=== PATIENT | female | born 1995 | race Caucasian/White ===

== ENCOUNTER 2023-01-20 21:51 | Outpatient (REF) | payer OTHER, SELFPAY ==
[2023-01-25 14:08] LABS: Age Gdln ACOG Testing Note (.); IGP, rfx Aptima HPV ASCU Note (.)
== END 2023-01-20 21:52 | disposition home or self-care (01) ==
LOC: LAB 21:51
PROVIDERS: PCP Family Medicine; Visit Provider Obstetrics & Gynecology
DX: Z01.419 Encounter for gynecological examination (general) (routine) without abnormal findings (principal)
CPT/HCPCS: G0145

== ENCOUNTER 2023-01-22 13:46 | Outpatient (OUT) | payer OTHER, SELFPAY ==
--- NOTE | 2023-01-22 13:52 | US_ITS ---
The [address] [address] Patient Name: UZIEL MELGOZA MRN: [id number] date: 1995 Sex: F Assigned Patient Location: US Current Patient Location: Accession/Order Number: [id number] Exam Date: 01/22/2023 13:55 Report Date: 01/23/2023 08:27 At the request of: LINDA GOLDBERG Procedure: US pelvis w/ transvaginal EXAM: US pelvis w/ transvaginal HISTORY: Pelvic Pain COMPARISON: 08/26/2019. TECHNIQUE: Pelvic sonography was performed utilizing grayscale and color Doppler technique. FINDINGS: Retroverted uterus measures 7.4 x 4.4 x 5.1 cm. Uterine endometrial stripe measures 0.3 cm in thickness. Intrauterine device is positioned within the lower uterine segment. Right ovary measures 2.6 x 2.1 x 1.6 cm. Normal right ovarian parenchyma. Left ovary measures 2.9 x 2.3 x 2.1 cm. Left ovarian cyst, 2.3 cm with heterogeneous hypoechoic/lacelike internal echoes and no internal color flow. No significant free fluid within the pelvis. US/US pelvis w/ transvaginal IMPRESSION: 1. Low-lying intrauterine device. 2. Probable left ovarian hemorrhagic cyst. Consider follow-up ultrasound in 6-8 weeks to ensure resolution. Electronically authenticated by: MANN PINO Date: 01/23/2023 08:27
== END 2023-01-22 13:47 | disposition home or self-care (01) ==
LOC: US 13:46
PROVIDERS: PCP Family Medicine; Visit Provider Obstetrics & Gynecology
DX: R10.2 Pelvic and perineal pain (principal); N83.202 Unspecified ovarian cyst, left side
CPT/HCPCS: 76830; 76856

== ENCOUNTER 2023-11-01 13:00 | Outpatient (OUT) | payer MEDICAID, OTHER, SELFPAY ==
--- NOTE | 2023-11-01 13:03 | US_ITS ---
[address] [address] Patient Name: UZIEL MELGOZA MRN: [id number] date: 1995 Sex: F Assigned Patient Location: [facility] Current Patient Location: Accession/Order Number: [id number] Exam Date: 11/01/2023 13:04 Report Date: 11/02/2023 06:41 At the request of: LINDA GOLDBERG Procedure: US pelvis w/ transvaginal EXAMINATION: US pelvis w/ transvaginal HISTORY: PELVIC PAIN ; right lower quadrant pain COMPARISON: Ultrasound pelvis 01/22/2023 TECHNIQUE: Transabdominal and/or transvaginal sonographic examination was performed as indicated by examination type. FINDINGS: UTERUS: Normal size and appearance. Uterus size: 7.9 x 3.9 x 5.5 cm ENDOMETRIUM: Normal homogeneous appearance. Endometrial thickness: 4 mm RIGHT OVARY: Contains a 1.8 cm slightly irregular cysts/collapsing follicle. Duplex Doppler demonstrates normal waveform and flow; resistive index 0.5. Ovary size: 3.3 x 2.5 x 2.2 cm LEFT OVARY: Normal size and appearance. Duplex Doppler demonstrates normal waveform and flow; resistive index 0.6. Ovary size: 2.2 x 1.6 x 2.5 cm CUL-DE-SAC: Unremarkable. No significant free fluid. BLADDER: Unremarkable. OTHER: None. US/US pelvis w/ transvaginal IMPRESSION: 1. Right ovary contains an irregular 1.8 cm cyst; likely collapsing cyst/follicle. Electronically authenticated by: LAYA CRUZ Date: 11/02/2023 06:41
--- OUTSIDE RECORDS SUMMARY | 2023-11-01 13:24 | XMS_ITS | CCD ---
Author Organization [facility] Care Team Providers Care Cardiovascular Technician Name Role Phone ASHLYN ., DR MCKEON Admitting Unavailable ASHLYN ., DR MCKEON Attending Unavailable HOY ., DR PERDUE Primary Care Unavailable RHETT CABRERA Admitting Unavailable RHETT CABRERA Attending Unavailable HOY ., DR PERDUE Primary Care Unavailable RHETT CABRERA Consulting Unavailable ASHLYN ., DR MCKEON Admitting Unavailable ASHLYN ., DR MCKEON Attending Unavailable HOY ., DR PERDUE Primary Care Unavailable ASHLYN ., DR MCKEON Consulting Unavailable KARASIK ., DR PALACIOS Admitting Unavailabl e KARASIK ., DR PALACIOS Attending Unavailabl e HOY ., DR PERDUE Primary Care Unavailable KARASIK ., DR PALACIOS Consulting Unavailabl e KARASIK ., DR PALACIOS Procedure Practitioner Maxine vailable MARIAM ., DR PERDUE Primary Care Unavailable VERONICA, DR RAFA Licea Admitting Unavailable VERONICA, DR RAFA Licea Attending Unavailable TANO ., NIK MCKEON Consulting Unavailabl e MANN PINO Consulting Unavailable ASHLYN ., DR MCKEON Admitting Unavailable ASHLYN ., DR MCKEON Attending Unavailable HOY ., DR PERDUE Primary Care Unavailable ASHLYNLINDA Attending Unavailable Problems Active Problems Problem Classification Problem Date Documented Da te Episodic/Chronic Otitis media and related conditions (4 sources) Otitis media, unspecified, right ear; Translations: [OTITIS MEDIA UNSPECIFIED RIGHT EAR] Onset: 05-22-2022 Episodic Unclassified (1 source) CONTACT W/AND (SUSP) EXPOS COVID-19; Translations: [CONTACT W/AND (SUSP) EXPOS COVID-19] Onset: 05-27-2022 Past or Other Problems Problem Classification Problem Date Documented Date Episodic/Chronic Fever of unknown origin (4 sources) Fever, unspecified; Translations: [FEVER UNSPECIFIED] Onset: 06-17-2021 Episodic Immunizations and screening for infectious disease (1 source) Encounter for screening for human papillomavirus (HPV); Translations: [ENC SCREENING HUMAN PAPILLOMAVIRUS] Onset: 09-18-2021 Episodic Influenza (1 source) Influenza due to other identified influenza virus with other respiratory manifestations; Translations: [FLU D/T OTH ID FLU VIR OTH RSP MANF] Onset: 06-19-2021 Episodic OB-related trauma to perineum and vulva (1 source) Second degree perineal laceration during delivery; Translations: [SECOND DEG PERINEAL LAC DUR DELIV] Onset: 07-01-2021 Episodic Other complications of (3 sources) Maternal care for excessive growth, third trimester, not applicable or unspecified; Translations: [MAT CARE EXCSS FTL GRTH 3RD TRI UNS] Onset: 06-02-2021 Episodic Other and delivery including normal (9 sources) Encounter for care and examination of lactating mother; Translations: [Encounter for routine follow-up] Onset: 06-09-2021 Episodic Other screening for suspected conditions (not mental disorders or infectious disease) (4 sources) Encounter for screening for malignant neoplasm of cervix; Translations: [ENC SCREENING MALIG NEOPLASM CERV] Onset: 09-17-2021 Episodic Residual codes; unclassified (1 source) 39 weeks gestation of ; Translations: [39 WEEKS GESTATION OF ] Onset: 07-01-2021 Episodic Urinary tract infections (1 source) Urinary tract infection, site not specified; Translations: [UTI SITE NOT SPECIFIED] Onset: 06-19-2021 Episodic Results Test Name Value Interpretation Reference Range Facil ity Covid-19 PCR (CVDTB)on 05-06 SARS-CoV-2 (COVID-19) RNA ODILIA+probe Ql (Unsp spec) Not detected Normal NOT DETECTED [facility] Comment on above: Result Comment: When diagnostic testing is negative, the possibility of a false negative should be considered in the context of a patient's recent exposures and the presence of clinical signs and symptoms consistent with SARS-CoV-2. This test is not yet approved or cleared by the [place] FDA. When there are no FDA-approved or cleared tests available, and other criteria are met, FDA can make tests available under an emergency access mechanism called an Emergency Use Authorization (EUA). The EUA for this test is supported by the [place] of Health and Human Service's declaration that circumstances exist to justify the emergency use of in vitro diagnostics for the detection and/or diagnosis of the virus that causes COVID-19. This EUA will remain in effect for the duration of the COVID-19 declaration justifying emergency of IVDs, unless it is terminated or revoked by the FDA (after which the test may no longer be used). Performed By: #### C VDTBH #### [facility] [address] [place] [address] Dr. Alisha Vargas INFLUENZA A AND B AGon 05-[address] [facility] Normal [facility] Comment on above: Result Comment: Nega tive for Flu A protein angiten. Infection due to Flu A cannot be ruled out. Flu A angiten in the sample may be below the detection limit of the test. Performed By: #### C VDTBH #### [facility] [address] [place] [address] Dr. [facility] Normal [facility] Comment on above: Result Comment: Nega tive for Flu B protein antigen. Infection due to Flu B cannot be ruled out. Flu B antigen in the sample may be below the detection limit of the test. Performed By: #### C VDTBH #### [facility] [address] [place] [address] Dr. Alisha Vargas INFLUENZA A AG Negative Normal NEGATIVE SEE COMMENT [facility] Comment on above: Performed By: #### C VDTBH #### [facility] [address] [place] [address] Dr. Alisha Vargas INFLUENZA B AG Negative Normal NEGATIVE SEE COMMENT [facility] Comment on above: Performed By: #### C VDTBH #### [facility] [address] [place] [address] Dr. Alisha Vargas PAP ACOG PANEL 2: 21 to 29on 2021 . . Normal [facility] Comment on above: Performed By: #### C VDTBH #### [facility] [address] [place] [address] Dr. Alisha Vargas Age Gdln ACOG Testing 21-29 Normal [facility] Comment on above: Performed By: #### C VDTBH #### [facility] [address] [place] [address] Dr. Alisha Vargas DIAGNOSIS: Comment [facility] Comment on above: Result Comment: NEGA TIVE FOR INTRAEPITHELIAL LESION OR MALIGNANCY. Performed By: #### C VDTBH #### [facility] [address] [place] [address] Dr. Alisha Vargas Methodology: Comment Normal [facility] Comment on above: Result Comment: This liquid based ThinPrep(R) pap test was screened with the use of an image guided system. Performed By: #### C VDTBH #### [facility] [address] [place] [address] Dr. Alisha Vargas Note: Comment Normal [facility] Comment on above: Result Comment: The Pap smear is a screening test designed to aid in the detection of premalignant and malignant conditions of the uterine cervix. It is not a diagnostic procedure and should not be used as the sole means of detecting cervical cancer. Both false-positive and false-negative reports do occur. . Performed By: #### C VDTBH #### [facility] [address] [place] [address] Dr. Alisha Vargas Performed by: Comment Normal [facility] Comment on above: Result Comment: Rolando Gonzales, Residential Gas Heat Technician (ASCP) Performed By: #### C VDTBH #### [facility] [address] [place] [address] Dr. Alisha Vargas Reflex Criteria: Comment Normal [facility] Comment on above: Result Comment: The HPV DNA reflex criteria were not met with this specimen result therefore, no HPV testing was performed. . Performed By: #### C VDTBH #### [facility] [address] [place] [address] Dr. Alisha Vargas Specimen adequacy: Comment Normal [facility] Comment on above: Result Comment: Sati sfactory for evaluation. Endocervical and/or squamous metaplastic cells (endocervical component) are present. Performed By: #### C VDTBH #### [facility] [address] [place] [address] Dr. Alisha Vargas CBC AUTO DIFFon 06-17-2021 BASO # 0.0 103/ul Normal 0.0-0.1 [facility] Comment on above: Performed By: #### C BC #### [facility] [address] [place] [address] Dr. Alisha Vargas Basophils/100 WBC (Bld) 0.3 % Normal 0.2-2.0 [facility] Comment on above: Performed By: #### C BC #### [facility] [address] [place] [address] Dr. Alisha Vargas EO # 0.0 103/ul Normal 0.0-0.7 [facility] Comment on above: Performed By: #### C BC #### [facility] [address] [place] [address] Dr. Alisha Vargas Eosinophils/100 WBC (Bld) 0.3 % Critically low 0.9-7.0 [facility] Comment on above: Performed By: #### C BC #### [facility] [address] [place] [address] Dr. Alisha Vargas Erythrocyte distribution width (RBC) [Ratio] 13.8 % Normal 11.0-15.0 [facility] Comment on above: Performed By: #### C BC #### [facility] [address] [place] [address] Dr. Alisha Vargas Hematocrit (Bld) [Volume fraction] 39.1 % Normal 36.0-48.0 [facility] Comment on above: Performed By: #### C BC #### [facility] [address] [place] [address] Dr. Alisha Vargas Hemoglobin (Bld) [Mass/Vol] 12.8 g/dL Normal 12.0-16.0 [facility] Comment on above: Performed By: #### C BC #### [facility] [address] [place] [address] Dr. Alisha Vargas IG # 0.02 10e3/ul Normal 0.00-0.03 [facility] Comment on above: Performed By: #### C BC #### [facility] [address] [place] [address] Dr. Alisha Vargas IG % 0.3 % Normal 0.0-0.5 [facility] Comment on above: Performed By: #### C BC #### [facility] [address] [place] [address] Dr. Alisha Vargas LYMPH # 0.7 103/ul Critically low 1.2-3.8 [facility] Comment on above: Performed By: #### C BC #### [facility] [address] [place] [address] Dr. Alisha Vargas Lymphocytes/100 WBC (Bld) 11.3 % Critically low 20.5-60.0 [facility] Comment on above: Performed By: #### C BC #### [facility] [address] [place] [address] Dr. Alisha Vargas MANUAL DIFF REQ NO Normal [facility] Comment on above: Performed By: #### C BC #### [facility] [address] [place] [address] Dr. Alisha Vargas MCH (RBC) [Entitic mass] 27.1 pg Normal 26.7-34.0 [facility] Comment on above: Performed By: #### C BC #### [facility] [address] [place] [address] Dr. Alisha Vargas MCHC (RBC) [Mass/Vol] 32.7 g/dL Normal 29.9-35.2 [facility] Comment on above: Performed By: #### C BC #### [facility] [address] [place] [address] Dr. Alisha Vargas MCV (RBC) [Entitic vol] 82.8 fL Normal 81.0-99.0 [facility] Comment on above: Performed By: #### C BC #### [facility] [address] [place] [address] Dr. Alisha Vargas MONO # 0.7 103/ul Normal 0.3-0.8 [facility] Comment on above: Performed By: #### C BC #### [facility] [address] [place] [address] Dr. Alisha Vargas Monocytes/100 WBC (Bld) 11.6 % Normal 1.7-12.0 [facility] Comment on above: Performed By: #### C BC #### [facility] [address] [place] [address] Dr. Alisha Vargas NEUT # 4.7 103/ul Normal 1.4-6.5 [facility] Comment on above: Performed By: #### C BC #### [facility] [address] [place] [address] Dr. Alisha Vargas Neutrophils/100 WBC (Bld) 76.2 % Critically high 43.0-75.0 [facility] Comment on above: Performed By: #### C BC #### [facility] [address] [place] [address] Dr. Alisha Vargas Platelet mean volume (Bld) [Entitic vol] 10.2 fL Normal 9.5-13.5 [facility] Comment on above: Performed By: #### C BC #### [facility] [address] [place] [address] Dr. Alisha Vargas PLT 289 103/ul Normal 150-450 [facility] Comment on above: Performed By: #### C BC #### [facility] [address] [place] [address] Dr. Alisha Vargas RBC 4.72 106/ul Normal 4.20-5.40 [facility] Comment on above: Performed By: #### C BC #### [facility] [address] [place] [address] Dr. Alisha Vargas WBC 6.2 103/ul Normal 4.0-11.0 [facility] Comment on above: Performed By: #### C BC #### [facility] [address] [place] [address] Dr. Alisha Vargas [facility]03 SARS-CoV-2 (COVID-19) RNA ODILIA+probe Ql (Unsp spec) Not detected Normal NOT DETECTED [facility] Comment on above: Result Comment: When diagnostic testing is negative, the possibility of a false negative should be considered in the context of a patient's recent exposures and the presence of clinical signs and symptoms consistent with SARS-CoV-2. This test is not yet approved or cleared by the [place] FDA. When there are no FDA-approved or cleared tests available, and other criteria are met, FDA can make tests available under an emergency access mechanism called an Emergency Use Authorization (EUA). The EUA for this test is supported by the [place] of Health and Human Service's declaration that circumstances exist to justify the emergency use of in vitro diagnostics for the detection and/or diagnosis of the virus that causes COVID-19. This EUA will remain in effect for the duration of the COVID-19 declaration justifying emergency of IVDs, unless it is terminated or revoked by the FDA (after which the test may no longer be used). Performed By: #### C VDTBH #### [facility] [address] [place] [address] Dr. Alisha Vargas ER URINE PROFILEon 2 Bilirubin Ql (U) Negative Normal NEGATIVE [facility] Comment on above: Performed By: #### C VDTBH #### [facility] [address] [place] [address] Dr. Alisha Vargas Clarity (U) CLEAR Normal CLEAR [facility] Comment on above: Performed By: #### C VDTBH #### [facility] [address] [place] [address] Dr. Alisha Vargas Color (U) LT. YELLOW Normal YELLOW [facility] Comment on above: Performed By: #### C VDTBH #### [facility] [address] [place] [address] Dr. Alisha Vargas ERUAHD A micrscopic examination will be performed if indicated. Normal [facility] Comment on above: Performed By: #### C VDTBH #### [facility] [address] [place] [address] Dr. Alisha Vargas Glucose Ql (U) Negative Normal NEGATIVE [facility] Comment on above: Performed By: #### C VDTBH #### [facility] [address] [place] [address] Dr. Alisha Vargas Hemoglobin Ql (U) MODERATE Abnormal NEGATIVE [facility] Comment on above: Performed By: #### C VDTBH #### [facility] [address] [place] [address] Dr. Alisha Vargas Ketones Ql (U) Negative Normal NEGATIVE [facility] Comment on above: Performed By: #### C VDTBH #### [facility] [address] [place] [address] Dr. Alisha Vargas LEUKOCYTES SMALL Abnormal NEGATIVE [facility] Comment on above: Performed By: #### C VDTBH #### [facility] [address] [place] [address] Dr. Alisha Vargas Nitrite Ql (U) Negative Normal NEGATIVE [facility] Comment on above: Performed By: #### C VDTBH #### [facility] [address] [place] [address] Dr. Alisha Vargas pH (U) 5.5 [pH] Normal 5-9 [facility] Comment on above: Performed By: #### C VDTBH #### [facility] [address] [place] [address] Dr. Alisha Vargas SPEC GRAVITY 1.015 Normal 1.005-<=1.025 [facility] Comment on above: Performed By: #### C VDTBH #### [facility] [address] [place] [address] Dr. Alisha Vargas UA PROTEIN Negative Normal NEGATIVE/ TRACE [facility] Comment on above: Performed By: #### C VDTBH #### [facility] [address] [place] [address] Dr. Alisha Vargas UR MICRO IND INDICATED Normal [facility] Comment on above: Performed By: #### C VDTBH #### [facility] [address] [place] [address] Dr. Alisha Vargas Urobilinogen Qn (U) 0.2 {Jayda'U}/dL Normal 0.2 - 1.0 [facility] Comment on above: Performed By: #### C VDTBH #### [facility] [address] [place] [address] Dr. Alisha Vargas GROUP A STREP CULTUREon 06-03 S. pyogenes Ag Ql (Unsp spec) Culture Observations: NEGATIVE FOR GROUP A STREPTOCOCCUS. Normal [facility] Comment on above: Performed By: #### S SCRWILMA BowerTCX #### [facility] [address] [place] [address] Dr. Alisha Vargas INFLUENZA A AND B AGon 06-17 INFLUBNEGH SEE BELOW Normal [facility] Comment on above: Result Comment: Nega tive for Flu B protein antigen. Infection due to Flu B cannot be ruled out. Flu B antigen in the sample may be below the detection limit of the test. Performed By: #### I NFLUAB #### [facility] [address] [place] [address] Dr. Alisha Vargas INFLUENZA A AG Positive Abnormal NEGATIVE SEE COMMENT [facility] Comment on above: Performed By: #### I NFLUAB #### [facility] [address] [place] [address] Dr. Alisha Vargas INFLUENZA B AG Negative Normal NEGATIVE SEE COMMENT [facility] Comment on above: Performed By: #### I NFLUAB #### [facility] [address] [place] [address] Dr. Alisha Vargas INFLUPOS SEE BELOW Normal [facility] Comment on above: Result Comment: NOTE : Live attenuated influenzae vaccine viruses can cause a positive result for a rapid influenza diagnostic test if administered up to 7 days prior to rapid testing. Performed By: #### I NFLUAB #### [facility] [address] [place] [address] Dr. Alisha Vargas INTERNAL CONTROLS Within Normal Limits Normal Wi thin Normal Limits [facility] Comment on above: Performed By: #### I NFLUAB #### [facility] [address] [place] [address] Dr. Alisha Vargas LACTATE/LACTIC ACIDon 2021 Lactate [Moles/Vol] 1.5 mmol/L Normal 0.7-2.0 [facility] Comment on above: Performed By: #### L ACT #### [facility] [address] [place] [address] Dr. Alisha Vargas PROF 14(COMP METB)on 022 Albumin [Mass/Vol] 3.4 g/dL Critically low 3.5-5.0 Th e [facility] Comment on above: Performed By: #### C MP #### [facility] [address] [place] [address] Dr. Alisha Vargas Albumin/Globulin [Mass ratio] 0.8 {ratio} Normal [facility] Comment on above: Performed By: #### C MP #### [facility] [address] [place] [address] Dr. Alisha Vargas ALP [Catalytic activity/Vol] 103 U/L Normal 38-126 [facility] Comment on above: Performed By: #### C MP #### [facility] [address] [place] [address] Dr. Alisha Vargas ALT [Catalytic activity/Vol] 43 U/L Normal 9-52 [facility] Comment on above: Performed By: #### C MP #### [facility] [address] [place] [address] Dr. Alisha Vargas Anion gap [Moles/Vol] 15.1 mmol/L Normal [facility] Comment on above: Performed By: #### C MP #### [facility] [address] [place] [address] Dr. Alisha Vargas AST [Catalytic activity/Vol] 31 U/L Normal 14-36 [facility] Comment on above: Performed By: #### C MP #### [facility] [address] [place] [address] Dr. Alisha Vargas Bilirubin [Mass/Vol] 0.3 mg/dL Normal 0.2-1.3 [facility] Comment on above: Performed By: #### C MP #### [facility] [address] [place] [address] Dr. Alisha Vargas Calcium [Mass/Vol] 8.8 mg/dL Normal 8.4-10.2 [facility] Comment on above: Performed By: #### C MP #### [facility] [address] [place], [place] [id number] Dr. Alisha Vargas Chloride [Moles/Vol] 99 mmol/L Normal 98-107 [facility] Comment on above: Performed By: #### C MP #### [facility] [address] [place] [address] Dr. Alisha Vargas CO2 [Moles/Vol] 24.0 mmol/L Normal 22.0-30.0 [facility] Comment on above: Performed By: #### C MP #### [facility] [address] [place] [address] Dr. Alisha Vargas Creatinine [Mass/Vol] 0.83 mg/dL Normal 0.52-1.04 [facility] Comment on above: Performed By: #### C MP #### [facility] [address] [place] [address] Dr. Alisha Vargas EGFR-AF SWISS >60 Normal >=60 [facility] Comment on above: Performed By: #### C MP #### [facility] [address] [place] [address] Dr. Alisha Vargas EGFR-NON AF SWISS >60 Normal >=60 [facility] Comment on above: Performed By: #### C MP #### [facility] [address] [place] [address] Dr. Alisha Vargas Globulin (S) [Mass/Vol] 4.5 g/dL Normal [facility] Comment on above: Performed By: #### C MP #### [facility] [address] [place] [address] Dr. Alisha Vargas Glucose [Mass/Vol] 110 mg/dL Critically high 74-106 [facility] Comment on above: Performed By: #### C MP #### [facility] [address] [place] [address] Dr. Alisha Vargas Potassium [Moles/Vol] 4.1 mmol/L Normal 3.4-5.0 [facility] Comment on above: Performed By: #### C MP #### [facility] [address] [place] [address] Dr. Alisha Vargas Protein [Mass/Vol] 7.9 g/dL Normal 6.1-8.2 [facility] Comment on above: Performed By: #### C MP #### [facility] [address] [address] [address] Alisha Vargas Sodium [Moles/Vol] 134 mmol/L Critically low 137-145 [facility] Comment on above: Performed By: #### C MP #### [facility] [address] [place] [address] Dr. Alisha Vargas Urea nitrogen [Mass/Vol] 9.0 mg/dL Normal 7.0-17.0 [facility] Comment on above: Performed By: #### C MP #### [facility] [address] [place] [address] Dr. Alisha Vargas Urea nitrogen/Creatinin e [Mass ratio] 10.8 mg/mg Normal [facility] Comment on above: Performed By: #### C MP #### [facility] [address] [place] [address] Dr. Alisha Vargas STREPT SCREENon 06-17-2021 STREP SCREEN A Negative Normal NEGATIVE [facility] Comment on above: Performed By: #### S SCRN, GRASTCX #### [facility] [address] [place] [address] Dr. Alisha Vargas URINE MICROSCOPIC ONLYon BACTERIA TRACE Abnormal NONE SEEN [facility] Comment on above: Performed By: #### C VDTBH #### [facility] [address] [place] [address] Dr. Alisha Vargas Bacteria identified Cx Nom (U) NOT INDICATED Normal [facility] Comment on above: Performed By: #### C VDTBH #### [facility] [address] [place] [address] Dr. Alisha Vargas CAST NONE SEEN Normal NONE SEEN [facility] Comment on above: Performed By: #### C VDTBH #### [facility] [address] [place] [address] Dr. Alisha Vargas Crystals LM Nom (Urine sed) NONE SEEN Normal NONE SEEN [facility] Comment on above: Performed By: #### C VDTBH #### [facility] [address] [place] [address] Dr. Alisha Vargas Epithelial cells LM Ql (Urine sed) RARE Normal NONE SEEN /RARE [facility] Comment on above: Performed By: #### C VDTBH #### [facility] [address] [place] [address] Dr. Alisha Vargas MUCOUS NONE SEEN Normal NONE SEEN [facility] Comment on above: Performed By: #### C VDTBH #### [facility] [address] [place] [address] Dr. Alisha Vargas RBC 0-2 Normal 0-2 [facility] Comment on above: Performed By: #### C VDTBH #### [facility] [address] [place] [address] Dr. Alisha Vargas WBC 2-5 Abnormal NONE SEEN [facility] Comment on above: Performed By: #### C VDTBH #### [facility] [address] [place] [address] Dr. Alisha Vargas XR CHEST 1 Von 06-17-2021 XR CHEST 1 V EXAM: XR CHEST 1 V HISTORY: COUGH COMPARISON: 10/26/2018 TECHNIQUE: Single frontal view of the chest. FINDINGS: Tubes/lines/devices: None. Lungs: Hypoinflated. No evidence of pneumonia or pulmonary edema. Pleura: No pneumothorax. No pleural effusion. Heart and mediastinum: Prominent cardiac silhouette attributed to hypoventilatory and portable technique. Bones/soft tissues: No acute osseous findings. Unremarkable soft tissues. Abdomen: Unremarkable. IMPRESSION: No acute pulmonary process. Electronically authenticated by: MANN PINO Date: 2021-06-17 21:52 Normal [facility] CBC AUTO DIFFon 06-04-2021 BASO # 0.0 103/ul Normal 0.0-0.1 [facility] Comment on above: Performed By: #### C VDTBH #### [facility] [address] [place] [address] Dr. Alisha Vargas Basophils/100 WBC (Bld) 0.3 % Normal 0.2-2.0 [facility] Comment on above: Performed By: #### C VDTBH #### [facility] [address] [place] [address] Dr. Alisha Vargas EO # 0.2 103/ul Normal 0.0-0.7 [facility] Comment on above: Performed By: #### C VDTBH #### [facility] [address] [place] [address] Dr. Alisha Vargas Eosinophils/100 WBC (Bld) 1.5 % Normal 0.9-7.0 [facility] Comment on above: Performed By: #### C VDTBH #### [facility] [address] [place] [address] Dr. Alisha Vargas Erythrocyte distribution width (RBC) [Ratio] 14.3 % Normal 11.0-15.0 [facility] Comment on above: Performed By: #### C VDTBH #### [facility] [address] [place] [address] Dr. Alisha Vargas Hematocrit (Bld) [Volume fraction] 31.6 % Critically low 36.0-48.0 [facility] Comment on above: Performed By: #### C VDTBH #### [facility] [address] [place] [address] Dr. Alisha Vargas Hemoglobin (Bld) [Mass/Vol] 10.3 g/dL Critically low 12.0-16.0 [facility] Comment on above: Performed By: #### C VDTBH #### [facility] [address] [place] [address] Dr. Alisha Vargas IG # 0.03 10e3/ul Normal 0.00-0.03 [facility] Comment on above: Performed By: #### C VDTBH #### [facility] [address] [place] [address] Dr. Alisha Vargas IG % 0.3 % Normal 0.0-0.5 [facility] Comment on above: Performed By: #### C VDTBH #### [facility] [address] [place] [address] Dr. Alisha Vargas LYMPH # 3.3 103/ul Normal 1.2-3.8 [facility] Comment on above: Performed By: #### C VDTBH #### [facility] [address] [place] [address] Dr. Alisha Vargas Lymphocytes/100 WBC (Bld) 30.3 % Normal 20.5-60.0 [facility] Comment on above: Performed By: #### C VDTBH #### [facility] [address] [place] [address] Dr. Alisha Vargas MANUAL DIFF REQ NO Normal [facility] Comment on above: Performed By: #### C VDTBH #### [facility] [address] [place] [address] Dr. Alisha Vargas MCH (RBC) [Entitic mass] 27.4 pg Normal 26.7-34.0 [facility] Comment on above: Performed By: #### C VDTBH #### [facility] [address] [place] [address] Dr. Alisha Vargas MCHC (RBC) [Mass/Vol] 32.6 g/dL Normal 29.9-35.2 [facility] Comment on above: Performed By: #### C VDTBH #### [facility] [address] [place] [address] Dr. Alisha Vargas MCV (RBC) [Entitic vol] 84.0 fL Normal 81.0-99.0 [facility] Comment on above: Performed By: #### C VDTBH #### [facility] [address] [place] [address] Dr. Alisha Vargas MONO # 0.6 103/ul Normal 0.3-0.8 [facility] Comment on above: Performed By: #### C VDTBH #### [facility] [address] [place] [address] Dr. Alisha Vargas Monocytes/100 WBC (Bld) 5.3 % Normal 1.7-12.0 [facility] Comment on above: Performed By: #### C VDTBH #### [facility] [address] [place] [address] Dr. Alisha Vargas NEUT # 6.7 103/ul Critically high 1.4-6.5 [facility] Comment on above: Performed By: #### C VDTBH #### [facility] [address] [address] [address] Alisha Vargas Neutrophils/100 WBC (Bld) 62.3 % Normal 43.0-75.0 [facility] Comment on above: Performed By: #### C VDTBH #### [facility] [address] [address] [address] Alisha Vargas Platelet mean volume (Bld) [Entitic vol] 11.2 fL Normal 9.5-13.5 [facility] Comment on above: Performed By: #### C VDTBH #### [facility] [address] [address] [address] Alisha Vargas PLT 234 103/ul Normal 150-450 [facility] Comment on above: Performed By: #### C VDTBH #### [facility] [address] [place] [address] Dr. Alisha Vargas RBC 3.76 106/ul Critically low 4.20-5.40 [facility] Comment on above: Performed By: #### C VDTBH #### [facility] [address] [place] [address] Dr. Alisha Vargas WBC 10.8 103/ul Normal 4.0-11.0 [facility] Comment on above: Performed By: #### C VDTBH #### [facility] [address] [place] [address] Dr. Alisha Vargas ASYMPTOMATIC COVID-19 ANTIGE Non 06-02-2021 EUA Statement SEE BELOW Normal [facility] Comment on above: Result Comment: This test has not been FDA cleared or approved, but has been authorized by the FDA under an Emergency Use Authorization (EUA) for use by authorized laboratories certified under CLIA that meet the requirements to perform moderate or high complexity testing. This test has been authorized only for the detection of proteins from SARS-CoV-2, not for any other viruses or pathogens. The emergency use of this test is authorized for the duration of the declaration that circumstances exist justifying the authorization of emergency use of in vitro diagnostic tests for detection and/or diagnosis of Covid-19 under section 564(b)(1) of the Act, 21 U.S.C. 360bbb-3(b)(1), unless the declaration is terminated or authorization is revoked sooner. Performed By: #### C VDAGA #### [facility] [address] [place] [address] Dr. Alisha Vargas SARS-CoV-2 (COVID-19) RNA ODILIA+probe Ql (Unsp spec) Negative Normal NEGATIVE [facility] Comment on above: Result Comment: Nega tive results are presumptive. They do not preclude infection and should not be used as the sole basis for treatment decisions. Additional confirmatory testing by a molecular method should be considered. Performed By: #### C VDAGA #### [facility] [address] [place] [address] Dr. Alisha Vargas CBC AUTO DIFFon 06-02-2021 BASO # 0.0 103/ul Normal 0.0-0.1 [facility] Comment on above: Performed By: #### C BC #### [facility] [address] [place] [address] Dr. Alisha Vargas Basophils/100 WBC (Bld) 0.2 % Normal 0.2-2.0 [facility] Comment on above: Performed By: #### C BC #### [facility] [address] [place] [address] Dr. Alisha Vargas EO # 0.1 103/ul Normal 0.0-0.7 [facility] Comment on above: Performed By: #### C BC #### [facility] [address] [place] [address] Dr. Alisha Vargas Eosinophils/100 WBC (Bld) 0.4 % Critically low 0.9-7.0 [facility] Comment on above: Performed By: #### C BC #### [facility] [address] [place] [address] Dr. Alisha Vargas Erythrocyte distribution width (RBC) [Ratio] 14.1 % Normal 11.0-15.0 [facility] Comment on above: Performed By: #### C BC #### [facility] [address] [place] [address] Dr. Alisha Vargas Hematocrit (Bld) [Volume fraction] 33.2 % Critically low 36.0-48.0 [facility] Comment on above: Performed By: #### C BC #### [facility] [address] [place] [address] Dr. Alisha Vargas Hemoglobin (Bld) [Mass/Vol] 10.8 g/dL Critically low 12.0-16.0 [facility] Comment on above: Performed By: #### C BC #### [facility] [address] [place] [address] Dr. Alisha Vargas IG # 0.05 10e3/ul Critically high 0.00-0.03 [facility] Comment on above: Performed By: #### C BC #### [facility] [address] [place] [address] Dr. Alisha Vargas IG % 0.4 % Normal 0.0-0.5 [facility] Comment on above: Performed By: #### C BC #### [facility] [address] [place] [address] Dr. Alisha Vargas LYMPH # 2.2 103/ul Normal 1.2-3.8 [facility] Comment on above: Performed By: #### C BC #### [facility] [address] [place] [address] Dr. Alisha Vargas Lymphocytes/100 WBC (Bld) 19.5 % Critically low 20.5-60.0 [facility] Comment on above: Performed By: #### C BC #### [facility] [address] [place] [address] Dr. Alisha Vargas MANUAL DIFF REQ NO Normal [facility] Comment on above: Performed By: #### C BC #### [facility] [address] [place] [address] Dr. Alisha Vargas MCH (RBC) [Entitic mass] 26.8 pg Normal 26.7-34.0 [facility] Comment on above: Performed By: #### C BC #### [facility] [address] [place] [address] Dr. Alisha Vargas MCHC (RBC) [Mass/Vol] 32.5 g/dL Normal 29.9-35.2 [facility] Comment on above: Performed By: #### C BC #### [facility] [address] [place] [address] Dr. Alisha Vargas MCV (RBC) [Entitic vol] 82.4 fL Normal 81.0-99.0 [facility] Comment on above: Performed By: #### C BC #### [facility] [address] [place] [address] Dr. Alisha Vargas MONO # 0.6 103/ul Normal 0.3-0.8 [facility] Comment on above: Performed By: #### C BC #### [facility] [address] [place] [address] Dr. Alisha Vargas Monocytes/100 WBC (Bld) 5.1 % Normal 1.7-12.0 [facility] Comment on above: Performed By: #### C BC #### [facility] [address] [place] [address] Dr. Alisha Vargas NEUT # 8.3 103/ul Critically high 1.4-6.5 [facility] Comment on above: Performed By: #### C BC #### [facility] [address] [place] [address] Dr. Alisha Vargas Neutrophils/100 WBC (Bld) 74.4 % Normal 43.0-75.0 [facility] Comment on above: Performed By: #### C BC #### [facility] [address] [place] [address] Dr. Alisha Vargas Platelet mean volume (Bld) [Entitic vol] 12.1 fL Normal 9.5-13.5 [facility] Comment on above: Performed By: #### C BC #### [facility] [address] [place] [address] Dr. Alisha Vargas PLT 257 103/ul Normal 150-450 [facility] Comment on above: Performed By: #### C BC #### [facility] [address] [place] [address] Dr. Alisha Vargas RBC 4.03 106/ul Critically low 4.20-5.40 [facility] Comment on above: Performed By: #### C BC #### [facility] [address] [place] [address] Dr. Alisha Vargas WBC 11.2 103/ul Critically high 4.0-11.0 [facility] Comment on above: Performed By: #### C BC #### [facility] [address] [place] [address] Dr. Alisha Vargas DRUG SCREEN RAPID (URINE)on 06-02-2021 AMP Negative Normal NEGATIVE [facility] Comment on above: Performed By: #### D RUGRPD #### [facility] [address] [place] [address] Dr. Alisha Vargas BAR Negative Normal NEGATIVE [facility] Comment on above: Performed By: #### D RUGRPD #### [facility] [address] [place] [address] Dr. Alisha Vargas BUP Negative Normal NEGATIVE [facility] Comment on above: Performed By: #### D RUGRPD #### [facility] [address] [place] [address] Dr. Alisha Vargas BZO Negative Normal NEGATIVE [facility] Comment on above: Performed By: #### D RUGRPD #### [facility] [address] [place] [address] Dr. Alisha Vargas DEBI Negative Normal NEGATIVE [facility] Comment on above: Performed By: #### D RUGRPD #### [facility] [address] [place] [address] Dr. Alisha Vargas CUT-OFFS SEE BELOW Normal [facility] Comment on above: Result Comment: AMP (Amphetamine): 500ng/mL, BAR (Barbituates): 200 ng/mL, BZO (Benzodiazepines): 150 ng/mL, BUP (Buprenorphine): 10 ng/mL, DEBI (Cocaine): 150 ng/mL, mAMP (Methamphetamine): 500 ng/mL, MTD (Methadone): 200 ng/mL, OPI (Opiates): 100 ng/mL, OXY (Oxycodone): 100 ng/mL, PCP (Phencyclidine): 25 ng/mL, PPX (Propoxyphene): 300 ng/mL, THC (Cannabinoids): 50 ng/mL, TCA (Trycyclic Antidepressants): 300 ng/mL Performed By: #### D RUGRPD #### [facility] [address] [place] [address] Dr. Alisha Vargas DRUG CUT HEADER DRUG CLASS TEST SYST EM CUT-OFF CONCENTRATIONS ARE FOLLOWS: Normal [facility] Comment on above: Performed By: #### D RUGRPD #### [facility] [address] [address] [address] Alisha Vargas mAMP Negative Normal NEGATIVE [facility] Comment on above: Performed By: #### D RUGRPD #### [facility] [address] [place] [address] Dr. Alisha Vargas MTD Negative Normal NEGATIVE [facility] Comment on above: Performed By: #### D RUGRPD #### [facility] [address] [place] [address] Dr. Alisha Vargas OPI Negative Normal NEGATIVE [facility] Comment on above: Performed By: #### D RUGRPD #### [facility] [address] [place] [address] Dr. Alisha Vargas OXY Negative Normal NEGATIVE [facility] Comment on above: Performed By: #### D RUGRPD #### [facility] [address] [place] [address] Dr. Alisha Vargas PCP Negative Normal NEGATIVE [facility] Comment on above: Performed By: #### D RUGRPD #### [facility] [address] [place] [address] Dr. Alisha Vargas PPX Negative Normal NEGATIVE [facility] Comment on above: Performed By: #### D RUGRPD #### [facility] [address] [address] [address] Alisha Vargas TCA Negative Normal NEGATIVE [facility] Comment on above: Performed By: #### D RUGRPD #### [facility] [address] [place] [address] Dr. Alisha Vargas THC Negative Normal NEGATIVE [facility] Comment on above: Performed By: #### D RUGRPD #### [facility] [address] [place], [place] [address] Dr. Alisha Vargas TYPE AND SCREENon 06-02-2021 TYPE AND SCREEN Negative Normal [facility] Comment on above: Performed By: #### [facility] #### [facility] [address] [place], [place] [address] Dr. Alisha Vargas Encounters Encounter Date Encounter Type Care Provider Facility Start: 10-20-2023 End: 10-20-2023 ambulatory LINDA GOLDBERG Not Available Start: 05-22-2022 End: 05-22-2022 ambulatory RHETT CABRERA Facility:[facility] Start: 09-17-2021 End: 09-17-[address] LINDA GOLDBERG . Facility:[facility] Start: 06-17-2021 End: 06-18-[address] NETTE BECRERA . Facility:[facility] Start: 06-11-2021 End: 06-16-[address] LINDA GOLDBERG . Facility:[facility] Start: 06-09-2021 End: 06-09-[address] LINDA GOLDBERG . Facility:[facility] Start: 06-02-2021 End: 06-04-2021 Evaluation and management of inpatient DR PHILIP [place] . Facility:[facility] Procedures Date Procedure Procedure Detail Performing Clinician Start: 06-03-2021 Delivery of Products of Conception, External Approach DR LINDA GOLDBERG . Start: 06-03-2021 Drainage of Amniotic Fluid, Therapeutic from Products of Conception, Via Natural or Artificial Opening DR LINDA GOLDBERG . Start: 06-03-2021 Repair Perineum Musc le, Open Approach DR ILNDA GOLDBERG . Start: 06-02-2021 Introduction of Horm one into Female Reproductive, Via Natural or Artificial Opening DR LINDA GOLDBERG . Payers Date Payer Category Payer Medicaid [id number] 1995 Unknown [id number] 2.16.84 [id number] 1996 Unknown [id number] 2.16.84 [id number] 1996 Unknown [id number] 2.16.84 [id number] 1996 Unknown [id number] 2.16.84 [id number] 1996 Unknown [id number] 2.16.84 [id number] 1996 Unknown [id number] 2.16.84 [id number] 1996 Unknown [id number] 2.16.84 [id number] 1959 Unknown [id number] 1959 Unknown [id number] Summary Purpose Family History No Family History Records FoundNo Family History Records Found Advance Directives No Advanced Directives Records FoundNo Advanced Directives Records Found Additional Source Comments INFORMATION SOURCE (unrecogn ized section and content) DATE CREATED AUTHOR 05/28/2022 [facility] DATE CREATED AUTHOR AUTHOR'S TAMI CERNA 10/24/2023 [facility] FOR RECORDS PERTAINING TO PATIENTS WHO ARE OR HAVE BEEN ENROLLED IN A CHEMICAL DEPENDENCY/SUBSTANCEABUSE PROGRAM, SOME INFORMATION MAY BE OMITTED. This clinical summary was aggregated from multiple sources. Caution should be exercised in using it in the provision of clinical care. This summary normalizes information from multiple sources, and as a consequence, information in this document may materially change the coding, format and clinical context of patient data. In addition, data may be omitted in some cases. CLINICAL DECISIONS SHOULD BE BASED ON THE PRIMARY CLINICAL RECORDS. [facility] [employer] provides no warranty or guarantee of the accuracy or completeness of information in this document.
== END 2023-11-01 13:01 | disposition home or self-care (01) ==
LOC: NOMS 13:01
PROVIDERS: PCP Family Medicine; Visit Provider Obstetrics & Gynecology
DX: R10.2 Pelvic and perineal pain (principal); N83.291 Other ovarian cyst, right side
CPT/HCPCS: 76830; 76856

== ENCOUNTER 2024-02-15 22:13 | Emergency (ER) | payer OTHER, SELFPAY ==
[2024-02-15 22:16] VITALS: BP 173/96; PULSE 77; TEMP 37.1; O2SAT 96; BMI 39.1
--- OUTSIDE RECORDS SUMMARY | 2024-02-15 22:18 | XMS_ITS | CCD ---
Author Organization [facility] Care Team Providers Care Retail Pharmacy Technician Name Role Phone ASHLYN ., DR [...] DR MCKEON Admitting Unavailable ASHLYN ., DR MCKOEN Attending Unavailable HOY ., DR PERDUE Primary [...] spec) Not detected Normal NOT DETECTED [facility] Comment on above: Result Comment: When diagnostic [...] for this test is supported by the [place] of Health and Human Service's declaration that [...] used). Performed By: #### C VDTBH #### [facility] [address] [place] [address] Dr. Alisha Vargas INFLUENZA A AND B [facility]on 05[facility] Normal [facility] Comment on above: Result Comment: Nega tive for Flu A protein angiten. Infection due to Flu A cannot be ruled out. Flu A angiten in the sample may be below the detection limit of the test. Performed By: #### C VDTBH #### [facility] [address] [place] [address] Dr. Alisha [facility] Normal [facility] Comment on above: Result Comment: Nega tive for Flu B protein antigen. Infection due to Flu B cannot be ruled out. Flu B antigen in the sample may be below the detection limit of the test. Performed By: #### C VDTBH #### [facility] [address] [place] [address] Dr. Alisha Vargas INFLUENZA A AG Negative Normal NEGATIVE SEE COMMENT [facility] Comment on above: Performed By: #### C VDTBH #### [facility] [address] [place] [address] Dr. Alisha Vargas INFLUENZA B AG Negative Normal NEGATIVE SEE COMMENT [facility] Comment on above: Performed By: #### C VDTBH #### [facility] [address] [place] [address] Dr. Alisha Vargas PAP ACOG PANEL 2: 22 to 30on 2021 . . Normal [facility] Comment on above: Performed By: #### C VDTBH #### [facility] [address] [place] [address] Dr. Alisha Vargas Age Gdln ACOG Testing 21-29 Normal [facility] Comment on above: Performed By: #### C VDTBH #### [facility] [address] [place] [address] Dr. Alisha Vargas DIAGNOSIS: Comment [facility] Comment on above: Result Comment: NEGA TIVE FOR INTRAEPITHELIAL LESION OR MALIGNANCY. Performed By: #### C VDTBH #### [facility] [address] [place] [address] Dr. Alisha Vargas Methodology: Comment Normal [facility] Comment on above: Result Comment: This liquid based ThinPrep(R) pap test was screened with the use of an image guided system. Performed By: #### C VDTBH #### [facility] [address] [place] [address] Dr. Alisha Vargas Note: Comment Normal [facility] Comment on above: Result Comment: The Pap smear is a screening test designed to aid in the detection of premalignant and malignant conditions of the uterine cervix. It is not a diagnostic procedure and should not be used as the sole means of detecting cervical cancer. Both false-positive and false-negative reports do occur. . Performed By: #### C VDTBH #### [facility] [address] [place] [address] Dr. Alisha Vargas Performed by: Comment Normal [facility] Comment on above: Result Comment: Rolando Gonzales, Door Captain (ASCP) Performed By: #### C VDTBH #### [facility] [address] [place] [address] Dr. Alisha Vargas Reflex Criteria: Comment Normal [facility] Comment on above: Result Comment: The HPV DNA reflex criteria were not met with this specimen result therefore, no HPV testing was performed. . Performed By: #### C VDTBH #### [facility] [address] [place] [address] Dr. Alisha Vargas Specimen adequacy: Comment Normal [facility] Comment on above: Result Comment: Sati sfactory for evaluation. Endocervical and/or squamous metaplastic cells (endocervical component) are present. Performed By: #### C VDTBH #### [facility] [address] [place] [address] Dr. Alisha Vargas CBC AUTO DIFFon 06-17-2021 BASO # 0.0 103/ul Normal 0.0-0.1 [facility] Comment on above: Performed By: #### C BC #### [facility] [address] [place] [address] Dr. Alisha Vargas Basophils/100 WBC (Bld) 0.3 % Normal 0.2-2.0 [facility] Comment on above: Performed By: #### C BC #### [facility] [address] [place] [address] Dr. Alisha Vargas EO # 0.0 103/ul Normal 0.0-0.7 [facility] Comment on above: Performed By: #### C BC #### [facility] [address] [place] [address] Dr. Alisha Vargas Eosinophils/100 WBC (Bld) 0.3 % Critically low 0.9-7.0 [facility] Comment on above: Performed By: #### C BC #### [facility] [address] [place] [address] Dr. Alisha Vargas Erythrocyte distribution width (RBC) [Ratio] 13.8 % Normal 11.0-15.0 [facility] Comment on above: Performed By: #### C BC #### [facility] [address] [place] [address] Dr. Alisha Vargas Hematocrit (Bld) [Volume fraction] 39.1 % Normal 36.0-48.0 [facility] Comment on above: Performed By: #### C BC #### [facility] [address] [place] [address] Dr. Alisha Vargas Hemoglobin (Bld) [Mass/Vol] 12.8 g/dL Normal 12.0-16.0 [facility] Comment on above: Performed By: #### C BC #### [facility] [address] [place] [address] Dr. Alisha Vargas IG # 0.02 10e3/ul Normal 0.00-0.03 [facility] Comment on above: Performed By: #### C BC #### [facility] [address] [place] [address] Dr. Alisha Vargas IG % 0.3 % Normal 0.0-0.5 [facility] Comment on above: Performed By: #### C BC #### [facility] [address] [place] [address] Dr. Alisha Vargas LYMPH # 0.7 103/ul Critically low 1.2-3.8 [facility] Comment on above: Performed By: #### C BC #### [facility] [address] [place] [address] Dr. Alisha Vargas Lymphocytes/100 WBC (Bld) 11.3 % Critically low 20.5-60.0 [facility] Comment on above: Performed By: #### C BC #### [facility] [address] [place] [address] Dr. Alisha Vargas MANUAL DIFF REQ NO Normal [facility] Comment on above: Performed By: #### C BC #### [facility] [address] [place] [address] Dr. Alisha Vargas MCH (RBC) [Entitic mass] 27.1 pg Normal 26.7-34.0 [facility] Comment on above: Performed By: #### C BC #### [facility] [address] [place] [address] Dr. Alisha Vargas MCHC (RBC) [Mass/Vol] 32.7 g/dL Normal 29.9-35.2 [facility] Comment on above: Performed By: #### C BC #### [facility] [address] [place] [address] Dr. Alisha Vargas MCV (RBC) [Entitic vol] 82.8 fL Normal 81.0-99.0 [facility] Comment on above: Performed By: #### C BC #### [facility] [address] [place] [address] Dr. Alisha Vargas MONO # 0.7 103/ul Normal 0.3-0.8 [facility] Comment on above: Performed By: #### C BC #### [facility] [address] [place] [address] Dr. Alisha Vargas Monocytes/100 WBC (Bld) 11.6 % Normal 1.7-12.0 [facility] Comment on above: Performed By: #### C BC #### [facility] [address] [place] [address] Dr. Alisha Vargas NEUT # 4.7 103/ul Normal 1.4-6.5 [facility] Comment on above: Performed By: #### C BC #### [facility] [address] [place] [address] Dr. Alisha Vargas Neutrophils/100 WBC (Bld) 76.2 % Critically high 43.0-75.0 [facility] Comment on above: Performed By: #### C BC #### [facility] [address] [place] [address] Dr. Alisha Vargas Platelet mean volume (Bld) [Entitic vol] 10.2 fL Normal 9.5-13.5 [facility] Comment on above: Performed By: #### C BC #### [facility] [address] [place] [address] Dr. Alisha Vargas PLT 289 103/ul Normal 150-450 [facility] Comment on above: Performed By: #### C BC #### [facility] [address] [place] [address] Dr. Alisha Vargas RBC 4.72 106/ul Normal 4.20-5.40 [facility] Comment on above: Performed By: #### C BC #### [facility] [address] [place] [address] Dr. Alisha Vargas WBC 6.2 103/ul Normal 4.0-11.0 [facility] Comment on above: Performed By: #### C BC #### [facility] [address] [place] [address] Dr. Alisha Vargas [facility] SARS-CoV-2 (COVID-19) RNA ODILIA+probe Ql (Unsp spec) Not detected Normal NOT DETECTED [facility] Comment on above: Result Comment: When diagnostic [...] for this test is supported by the [place] of Health and Human Service's declaration that [...] used). Performed By: #### C VDTBH #### [facility] [address] [place] [address] Dr. Alisha Vargas ER URINE PROFILEon 2 Bilirubin Ql (U) Negative Normal NEGATIVE [facility] Comment on above: Performed By: #### C VDTBH #### [facility] [address] [place] [address] Dr. Alisha Vargas Clarity (U) CLEAR Normal CLEAR [facility] Comment on above: Performed By: #### C VDTBH #### [facility] [address] [place] [address] Dr. Alisha Vargas Color (U) LT. YELLOW Normal YELLOW [facility] Comment on above: Performed By: #### C VDTBH #### [facility] [address] [place] [address] Dr. Alisha Vargas ERUAHD A micrscopic examination will be performed if indicated. Normal [facility] Comment on above: Performed By: #### C VDTBH #### [facility] [address] [place] [address] Dr. Alisha Vargas Glucose Ql (U) Negative Normal NEGATIVE [facility] Comment on above: Performed By: #### C VDTBH #### [facility] [address] [place] [address] Dr. Alisha Vargas Hemoglobin Ql (U) MODERATE Abnormal NEGATIVE [facility] Comment on above: Performed By: #### C VDTBH #### [facility] [address] [place] [address] Dr. Alisha Vargas Ketones Ql (U) Negative Normal NEGATIVE [facility] Comment on above: Performed By: #### C VDTBH #### [facility] [address] [place] [address] Dr. Alisha Vargas LEUKOCYTES SMALL Abnormal NEGATIVE [facility] Comment on above: Performed By: #### C VDTBH #### [facility] [address] [place] [address] Dr. Alisha Vargas Nitrite Ql (U) Negative Normal NEGATIVE [facility] Comment on above: Performed By: #### C VDTBH #### [facility] [address] [place] [address] Dr. Alisha Vargas pH (U) 5.5 [pH] Normal 5-9 [facility] Comment on above: Performed By: #### C VDTBH #### [facility] [address] [place] [address] Dr. Alisha Vargas SPEC GRAVITY 1.015 Normal 1.005-<=1.025 [facility] Comment on above: Performed By: #### C VDTBH #### [facility] [address] [place] [address] Dr. Alisha Vargas UA PROTEIN Negative Normal NEGATIVE/ TRACE [facility] Comment on above: Performed By: #### C VDTBH #### [facility] [address] [place] [address] Dr. Alisha Vargas UR MICRO IND INDICATED Normal [facility] Comment on above: Performed By: #### C VDTBH #### [facility] [address] [place] [address] Dr. Alisha Vargas Urobilinogen Qn (U) 0.2 {Jayda'U}/dL Normal 0.2 - 1.0 [facility] Comment on above: Performed By: #### C VDTBH #### [facility] [address] [place] [address] Dr. Alisha Vargas GROUP A STREP CULTUREon 06-03 S. pyogenes Ag Ql (Unsp spec) Culture Observations: NEGATIVE FOR GROUP A STREPTOCOCCUS. Normal [facility] Comment on above: Performed By: #### S SCRWILMA BowerTCX #### [facility] [address] [place] [address] Dr. Alisha Vargas INFLUENZA A AND B AGon 06-17 INFLUBNEGH SEE BELOW Normal [facility] Comment on above: Result Comment: Nega tive for Flu B protein antigen. Infection due to Flu B cannot be ruled out. Flu B antigen in the sample may be below the detection limit of the test. Performed By: #### I NFLUAB #### [facility] [address] [place] [address] Dr. Alisha Vargas INFLUENZA A AG Positive Abnormal NEGATIVE SEE COMMENT [facility] Comment on above: Performed By: #### I NFLUAB #### [facility] [address] [place] [address] Dr. Alisha Vargas INFLUENZA B AG Negative Normal NEGATIVE SEE COMMENT [facility] Comment on above: Performed By: #### I NFLUAB #### [facility] [address] [place] [address] Dr. Alisha Vargas INFLUPOS SEE BELOW Normal [facility] Comment on above: Result Comment: NOTE : Live attenuated influenzae vaccine viruses can cause a positive result for a rapid influenza diagnostic test if administered up to 7 days prior to rapid testing. Performed By: #### I NFLUAB #### [facility] [address] [place] [address] Dr. Alisha Vargas INTERNAL CONTROLS Within Normal Limits Normal Wi thin Normal Limits [facility] Comment on above: Performed By: #### I NFLUAB #### [facility] [address] [place] [address] Dr. Alisha Vargas LACTATE/LACTIC ACIDon 2021 Lactate [Moles/Vol] 1.5 mmol/L Normal 0.7-2.0 [facility] Comment on above: Performed By: #### L ACT #### [facility] [address] [place] [address] Dr. Alisha Vargas PROF 14(COMP METB)on 022 Albumin [Mass/Vol] 3.4 g/dL Critically low 3.5-5.0 [facility] Comment on above: Performed By: #### C MP #### [facility] [address] [place] [address] Dr. Alisha Vargas Albumin/Globulin [Mass ratio] 0.8 {ratio} Normal [facility] Comment on above: Performed By: #### C MP #### [facility] [address] [place] [address] Dr. Alisha Vargas ALP [Catalytic activity/Vol] 103 U/L Normal 38-126 [facility] Comment on above: Performed By: #### C MP #### [facility] [address] [place] [address] Dr. Alisha Vargas ALT [Catalytic activity/Vol] 43 U/L Normal 9-52 [facility] Comment on above: Performed By: #### C MP #### [facility] [address] [place] [address] Dr. Alisha Vargas Anion gap [Moles/Vol] 15.1 mmol/L Normal [facility] Comment on above: Performed By: #### C MP #### [facility] [address] [place] [address] Dr. Alisha Vargas AST [Catalytic activity/Vol] 31 U/L Normal 14-36 [facility] Comment on above: Performed By: #### C MP #### [facility] [address] [place] [address] Dr. Alisha Vargas Bilirubin [Mass/Vol] 0.3 mg/dL Normal 0.2-1.3 [facility] Comment on above: Performed By: #### C MP #### [facility] [address] [place] [address] Dr. Alisha Vargas Calcium [Mass/Vol] 8.8 mg/dL Normal 8.4-10.2 [facility] Comment on above: Performed By: #### C MP #### [facility] [address] [place], [place] [id number] Dr. Alisha Vargas Chloride [Moles/Vol] 99 mmol/L Normal 98-107 [facility] Comment on above: Performed By: #### C MP #### [facility] [address] [place] [address] Dr. Alisha Vargas CO2 [Moles/Vol] 24.0 mmol/L Normal 22.0-30.0 [facility] Comment on above: Performed By: #### C MP #### [facility] [address] [place] [address] Dr. Alisha Vargas Creatinine [Mass/Vol] 0.83 mg/dL Normal 0.52-1.04 [facility] Comment on above: Performed By: #### C MP #### [facility] [address] [place] [address] Dr. Alisha Vargas EGFR-AF VENEZUELAN >60 Normal >=60 [facility] Comment on above: Performed By: #### C MP #### [facility] [address] [place] [address] Dr. Alisha Vargas EGFR-NON AF VENEZUELAN >60 Normal >=60 [facility] Comment on above: Performed By: #### C MP #### [facility] [address] [place] [address] Dr. Alisha Vargas Globulin (S) [Mass/Vol] 4.5 g/dL Normal [facility] Comment on above: Performed By: #### C MP #### [facility] [address] [place] [address] Dr. Alisha Vargas Glucose [Mass/Vol] 110 mg/dL Critically high 74-106 [facility] Comment on above: Performed By: #### C MP #### [facility] [address] [place] [address] Dr. Alisha Vargas Potassium [Moles/Vol] 4.1 mmol/L Normal 3.4-5.0 [facility] Comment on above: Performed By: #### C MP #### [facility] [address] [place] [address] Dr. Alisha Vargas Protein [Mass/Vol] 7.9 g/dL Normal 6.1-8.2 [facility] Comment on above: Performed By: #### C MP #### [facility] [address] [address] [address] Alisha Vargas Sodium [Moles/Vol] 134 mmol/L Critically low 137-145 [facility] Comment on above: Performed By: #### C MP #### [facility] [address] [place] [address] Dr. Alisha Vargas Urea nitrogen [Mass/Vol] 9.0 mg/dL Normal 7.0-17.0 [facility] Comment on above: Performed By: #### C MP #### [facility] [address] [place] [address] Dr. Alisha Vargas Urea nitrogen/Creatinin e [Mass ratio] 10.8 mg/mg Normal [facility] Comment on above: Performed By: #### C MP #### [facility] [address] [place] [address] Dr. Alisha Vargas STREPT SCREENon 06-17-2021 STREP SCREEN A Negative Normal NEGATIVE [facility] Comment on above: Performed By: #### S SCRN, GRASTCX #### [facility] [address] [place] [address] Dr. Alisha Vargas URINE MICROSCOPIC ONLYon BACTERIA TRACE Abnormal NONE SEEN [facility] Comment on above: Performed By: #### C VDTBH #### [facility] [address] [place] [address] Dr. Alisha Vargas Bacteria identified Cx Nom (U) NOT INDICATED Normal [facility] Comment on above: Performed By: #### C VDTBH #### [facility] [address] [place] [address] Dr. Alisha Vargas CAST NONE SEEN Normal NONE SEEN [facility] Comment on above: Performed By: #### C VDTBH #### [facility] [address] [place] [address] Dr. Alisha Vargas Crystals LM Nom (Urine sed) NONE SEEN Normal NONE SEEN [facility] Comment on above: Performed By: #### C VDTBH #### [facility] [address] [place] [address] Dr. Alisha Vargas Epithelial cells LM Ql (Urine sed) RARE Normal NONE SEEN /RARE [facility] Comment on above: Performed By: #### C VDTBH #### [facility] [address] [place] [address] Dr. Alisha Vargas MUCOUS NONE SEEN Normal NONE SEEN [facility] Comment on above: Performed By: #### C VDTBH #### [facility] [address] [place] [address] Dr. Alisha Vargas RBC 0-2 Normal 0-2 [facility] Comment on above: Performed By: #### C VDTBH #### [facility] [address] [place] [address] Dr. Alisha Vargas WBC 2-5 Abnormal NONE SEEN [facility] Comment on above: Performed By: #### C VDTBH #### [facility] [address] [place] [address] Dr. Alisha Vargas XR CHEST 1 Von [...] MANN PINO Date: 2021-06-17 21:52 Normal [facility] CBC AUTO DIFFon 06-04-2021 BASO # 0.0 103/ul Normal 0.0-0.1 [facility] Comment on above: Performed By: #### C VDTBH #### [facility] [address] [place] [address] Dr. Alisha Vargas Basophils/100 WBC (Bld) 0.3 % Normal 0.2-2.0 [facility] Comment on above: Performed By: #### C VDTBH #### [facility] [address] [place] [address] Dr. Alisha Vargas EO # 0.2 103/ul Normal 0.0-0.7 [facility] Comment on above: Performed By: #### C VDTBH #### [facility] [address] [place] [address] Dr. Alisha Vargas Eosinophils/100 WBC (Bld) 1.5 % Normal 0.9-7.0 [facility] Comment on above: Performed By: #### C VDTBH #### [facility] [address] [place] [address] Dr. Alisha Vargas Erythrocyte distribution width (RBC) [Ratio] 14.3 % Normal 11.0-15.0 [facility] Comment on above: Performed By: #### C VDTBH #### [facility] [address] [place] [address] Dr. Alisha Vargas Hematocrit (Bld) [Volume fraction] 31.6 % Critically low 36.0-48.0 [facility] Comment on above: Performed By: #### C VDTBH #### [facility] [address] [place] [address] Dr. Alisha Vargas Hemoglobin (Bld) [Mass/Vol] 10.3 g/dL Critically low 12.0-16.0 [facility] Comment on above: Performed By: #### C VDTBH #### [facility] [address] [place] [address] Dr. Alisha Vargas IG # 0.03 10e3/ul Normal 0.00-0.03 [facility] Comment on above: Performed By: #### C VDTBH #### [facility] [address] [place] [address] Dr. Alisha Vargas IG % 0.3 % Normal 0.0-0.5 [facility] Comment on above: Performed By: #### C VDTBH #### [facility] [address] [place] [address] Dr. Alisha Vargas LYMPH # 3.3 103/ul Normal 1.2-3.8 [facility] Comment on above: Performed By: #### C VDTBH #### [facility] [address] [place] [address] Dr. Alisha Vargas Lymphocytes/100 WBC (Bld) 30.3 % Normal 20.5-60.0 [facility] Comment on above: Performed By: #### C VDTBH #### [facility] [address] [place] [address] Dr. Alisha Vargas MANUAL DIFF REQ NO Normal [facility] Comment on above: Performed By: #### C VDTBH #### [facility] [address] [place] [address] Dr. Alisha Vargas MCH (RBC) [Entitic mass] 27.4 pg Normal 26.7-34.0 [facility] Comment on above: Performed By: #### C VDTBH #### [facility] [address] [place] [address] Dr. Alisha Vargas MCHC (RBC) [Mass/Vol] 32.6 g/dL Normal 29.9-35.2 [facility] Comment on above: Performed By: #### C VDTBH #### [facility] [address] [place] [address] Dr. Alisha Vargas MCV (RBC) [Entitic vol] 84.0 fL Normal 81.0-99.0 [facility] Comment on above: Performed By: #### C VDTBH #### [facility] [address] [place] [address] Dr. Alisha Vargas MONO # 0.6 103/ul Normal 0.3-0.8 [facility] Comment on above: Performed By: #### C VDTBH #### [facility] [address] [place] [address] Dr. Alisha Vargas Monocytes/100 WBC (Bld) 5.3 % Normal 1.7-12.0 [facility] Comment on above: Performed By: #### C VDTBH #### [facility] [address] [place] [address] Dr. Alisha Vargas NEUT # 6.7 103/ul Critically high 1.4-6.5 [facility] Comment on above: Performed By: #### C VDTBH #### [facility] [address] [address] [address] Alisha Vargas Neutrophils/100 WBC (Bld) 62.3 % Normal 43.0-75.0 [facility] Comment on above: Performed By: #### C VDTBH #### [facility] [address] [address] [address] Alisha Vargas Platelet mean volume (Bld) [Entitic vol] 11.2 fL Normal 9.5-13.5 [facility] Comment on above: Performed By: #### C VDTBH #### [facility] [address] [address] [address] Alisha Vargas PLT 234 103/ul Normal 150-450 [facility] Comment on above: Performed By: #### C VDTBH #### [facility] [address] [place] [address] Dr. Alisha Vargas RBC 3.76 106/ul Critically low 4.20-5.40 [facility] Comment on above: Performed By: #### C VDTBH #### [facility] [address] [place] [address] Dr. Alisha Vargas WBC 10.8 103/ul Normal 4.0-11.0 [facility] Comment on above: Performed By: #### C VDTBH #### [facility] [address] [place] [address] Dr. Alisha Vargas ASYMPTOMATIC COVID-19 ANTIGE Non 06-02-2021 EUA Statement SEE BELOW Normal [facility] Comment on above: Result Comment: This test [...] sooner. Performed By: #### C VDAGA #### [facility] [address] [place] [address] Dr. Alisha Vargas SARS-CoV-2 (COVID-19) RNA ODILIA+probe Ql (Unsp spec) Negative Normal NEGATIVE [facility] Comment on above: Result Comment: Nega tive results are presumptive. They do not preclude infection and should not be used as the sole basis for treatment decisions. Additional confirmatory testing by a molecular method should be considered. Performed By: #### C VDAGA #### [facility] [address] [place] [address] Dr. Alisha Vargas CBC AUTO DIFFon 06-02-2021 BASO # 0.0 103/ul Normal 0.0-0.1 [facility] Comment on above: Performed By: #### C BC #### [facility] [address] [place] [address] Dr. Alisha Vargas Basophils/100 WBC (Bld) 0.2 % Normal 0.2-2.0 [facility] Comment on above: Performed By: #### C BC #### [facility] [address] [place] [address] Dr. Alisha Vargas EO # 0.1 103/ul Normal 0.0-0.7 [facility] Comment on above: Performed By: #### C BC #### [facility] [address] [place] [address] Dr. Alisha Vargas Eosinophils/100 WBC (Bld) 0.4 % Critically low 0.9-7.0 [facility] Comment on above: Performed By: #### C BC #### [facility] [address] [place] [address] Dr. Alisha Vargas Erythrocyte distribution width (RBC) [Ratio] 14.1 % Normal 11.0-15.0 [facility] Comment on above: Performed By: #### C BC #### [facility] [address] [place] [address] Dr. Alisha Vargas Hematocrit (Bld) [Volume fraction] 33.2 % Critically low 36.0-48.0 [facility] Comment on above: Performed By: #### C BC #### [facility] [address] [place] [address] Dr. Alisha Vargas Hemoglobin (Bld) [Mass/Vol] 10.8 g/dL Critically low 12.0-16.0 [facility] Comment on above: Performed By: #### C BC #### [facility] [address] [place] [address] Dr. Alisha Vargas IG # 0.05 10e3/ul Critically high 0.00-0.03 [facility] Comment on above: Performed By: #### C BC #### [facility] [address] [place] [address] Dr. Alisha Vargas IG % 0.4 % Normal 0.0-0.5 [facility] Comment on above: Performed By: #### C BC #### [facility] [address] [place] [address] Dr. Alisha Vargas LYMPH # 2.2 103/ul Normal 1.2-3.8 [facility] Comment on above: Performed By: #### C BC #### [facility] [address] [place] [address] Dr. Alisha Vargas Lymphocytes/100 WBC (Bld) 19.5 % Critically low 20.5-60.0 [facility] Comment on above: Performed By: #### C BC #### [facility] [address] [place] [address] Dr. Alisha Vargas MANUAL DIFF REQ NO Normal [facility] Comment on above: Performed By: #### C BC #### [facility] [address] [place] [address] Dr. Alisha Vargas MCH (RBC) [Entitic mass] 26.8 pg Normal 26.7-34.0 [facility] Comment on above: Performed By: #### C BC #### [facility] [address] [place] [address] Dr. Alisha Vargas MCHC (RBC) [Mass/Vol] 32.5 g/dL Normal 29.9-35.2 [facility] Comment on above: Performed By: #### C BC #### [facility] [address] [place] [address] Dr. Alisha Vargas MCV (RBC) [Entitic vol] 82.4 fL Normal 81.0-99.0 [facility] Comment on above: Performed By: #### C BC #### [facility] [address] [place] [address] Dr. Alisha Vargas MONO # 0.6 103/ul Normal 0.3-0.8 [facility] Comment on above: Performed By: #### C BC #### [facility] [address] [place] [address] Dr. Alisha Vargas Monocytes/100 WBC (Bld) 5.1 % Normal 1.7-12.0 [facility] Comment on above: Performed By: #### C BC #### [facility] [address] [place] [address] Dr. Alisha Vargas NEUT # 8.3 103/ul Critically high 1.4-6.5 [facility] Comment on above: Performed By: #### C BC #### [facility] [address] [place] [address] Dr. Alisha Vargas Neutrophils/100 WBC (Bld) 74.4 % Normal 43.0-75.0 [facility] Comment on above: Performed By: #### C BC #### [facility] [address] [place] [address] Dr. Alisha Vargas Platelet mean volume (Bld) [Entitic vol] 12.1 fL Normal 9.5-13.5 [facility] Comment on above: Performed By: #### C BC #### [facility] [address] [place] [address] Dr. Alisha Vargas PLT 257 103/ul Normal 150-450 [facility] Comment on above: Performed By: #### C BC #### [facility] [address] [place] [address] Dr. Alisha Vargas RBC 4.03 106/ul Critically low 4.20-5.40 [facility] Comment on above: Performed By: #### C BC #### [facility] [address] [place] [address] Dr. Alisha Vargas WBC 11.2 103/ul Critically high 4.0-11.0 [facility] Comment on above: Performed By: #### C BC #### [facility] [address] [place] [address] Dr. Alisha Vargas DRUG SCREEN RAPID (URINE)on 06-02-2021 AMP Negative Normal NEGATIVE [facility] Comment on above: Performed By: #### D RUGRPD #### [facility] [address] [place] [address] Dr. Alisha Vargas BAR Negative Normal NEGATIVE [facility] Comment on above: Performed By: #### D RUGRPD #### [facility] [address] [place] [address] Dr. Alisha Vargas BUP Negative Normal NEGATIVE [facility] Comment on above: Performed By: #### D RUGRPD #### [facility] [address] [place] [address] Dr. Alisha Vargas BZO Negative Normal NEGATIVE [facility] Comment on above: Performed By: #### D RUGRPD #### [facility] [address] [place] [address] Dr. Alisha Vargas DEBI Negative Normal NEGATIVE [facility] Comment on above: Performed By: #### D RUGRPD #### [facility] [address] [place] [address] Dr. Alisha Vargas CUT-OFFS SEE BELOW Normal [facility] Comment on above: Result Comment: AMP (Amphetamine): 500ng/mL, BAR (Barbituates): 200 ng/mL, BZO (Benzodiazepines): 150 ng/mL, BUP (Buprenorphine): 10 ng/mL, DEBI (Cocaine): 150 ng/mL, mAMP (Methamphetamine): 500 ng/mL, MTD (Methadone): 200 ng/mL, OPI (Opiates): 100 ng/mL, OXY (Oxycodone): 100 ng/mL, PCP (Phencyclidine): 25 ng/mL, PPX (Propoxyphene): 300 ng/mL, THC (Cannabinoids): 50 ng/mL, TCA (Trycyclic Antidepressants): 300 ng/mL Performed By: #### D RUGRPD #### [facility] [address] [place] [address] Dr. Alisha Vargas DRUG CUT HEADER DRUG CLASS TEST SYST EM CUT-OFF CONCENTRATIONS ARE FOLLOWS: Normal [facility] Comment on above: Performed By: #### D RUGRPD #### [facility] [address] [address] [address] Alisha Vargas mAMP Negative Normal NEGATIVE [facility] Comment on above: Performed By: #### D RUGRPD #### [facility] [address] [place] [address] Dr. Alisha Vargas MTD Negative Normal NEGATIVE [facility] Comment on above: Performed By: #### D RUGRPD #### [facility] [address] [place] [address] Dr. Alisha Vargas OPI Negative Normal NEGATIVE [facility] Comment on above: Performed By: #### D RUGRPD #### [facility] [address] [place] [address] Dr. Alisha Vargas OXY Negative Normal NEGATIVE [facility] Comment on above: Performed By: #### D RUGRPD #### [facility] [address] [place] [address] Dr. Alisha Vargas PCP Negative Normal NEGATIVE [facility] Comment on above: Performed By: #### D RUGRPD #### [facility] [address] [place] [address] Dr. Alisha Vargas PPX Negative Normal NEGATIVE [facility] Comment on above: Performed By: #### D RUGRPD #### [facility] [address] [address] [address] Alisha Vargas TCA Negative Normal NEGATIVE [facility] Comment on above: Performed By: #### D RUGRPD #### [facility] [address] [place] [address] Dr. Alisha Vargas THC Negative Normal NEGATIVE [facility] Comment on above: Performed By: #### D RUGRPD #### [facility] [address] [place], [place] [address] Dr. Alisha Vargas TYPE AND SCREENon 06-02-2021 TYPE AND SCREEN Negative Normal [facility] Comment on above: Performed By: #### [facility] #### [facility] [address] [place], [place] [address] Dr. Alisha Vargas Encounters Encounter Date Encounter Type Care Provider Facility Start: 10-20-2023 End: 10-20-2023 ambulatory LINDA GOLDBERG Not Available Start: 05-22-2022 End: 05-22-2022 ambulatory RHETT CABRERA Facility:[facility] Start: 09-17-2021 End: 09-17-[address] LINDA GOLDBERG . Facility:[facility] Start: 06-17-2021 End: 06-18-[address] NETTE BECERRA . Facility:[facility] Start: 06-11-2021 End: 06-16-2021 ambulatory [...] Repair Perineum Musc le, Open Approach DR LINDA GOLDBERG . Start: 06-02-2021 Introduction of Horm one into Female Reproductive, Via Natural or Artificial Opening DR LINDA GOLDBERG . Payers Date Payer Category Payer Medicaid [id number] 1995 Unknown [id number] 2.16.84 [id number] 1996 Unknown [id number] 2.16.84 [id number] 1996 Unknown [id number] 2.16.84 [id number] 1996 Unknown [id number] 2.16.84 [id number] 1996 Unknown [id number] 2.16.84 [id number] 1996 Unknown [id number] 2.16.84 [id number] 1996 Unknown [id number] 2.16.84 [id number] 1959 Unknown [id number] 1959 Unknown [id number] Summary Purpose Family History No Family History Records FoundNo Family History Records Found Advance Directives No Advanced Directives Records FoundNo Advanced Directives Records Found Additional Source Comments INFORMATION SOURCE (unrecogn ized section and content) DATE CREATED AUTHOR 05/28/2022 [facility] DATE CREATED AUTHOR AUTHOR'S TAMI CERNA 10/24/2023 [facility] FOR RECORDS PERTAINING TO PATIENTS WHO ARE [...] BE BASED ON THE PRIMARY CLINICAL RECORDS. [facility] [employer] provides no warranty or guarantee of the accuracy or completeness of information in this document.
--- NOTE | 2024-02-15 22:25 | ED.PREGNANC1 ---
HPI - General Chief complaint: OB/Uterine Contractions Stated complaint: 6 week bleeding Time Seen by Provider: 02/15/24 22:21 Source: patient Mode of arrival: walk-in Limitations: no limitations History of Present Illness HPI Narrative: [id number]. Believes she is 5-6 weeks . [place] last PM. small amount of blood this AM after wiping. More vaginal blood tonight. No pain or nausea . No fever or dysuria Related Data Home Medications ?Medication ?Instructions ?Recorded ?Confirmed No Known Home Medications 02/15/24 02/15/24 Allergies Allergy/AdvReac Type Severity Reaction Status Date / Time No Known Drug Allergies Allergy Verified 02/15/24 22:19 Review of Systems ROS Status of ROS 10 or more systems reviewed and unremarkable except as noted in history and below PFSH PFSH Social History Little interest or pleasure in doing things: not at all Feeling down, depressed, or hopeless: not at all Exam Constitutional Vital Signs, click to edit/add: Last Vital Signs Temp 98.8 F 02/15/24 22:16 Pulse 77 02/15/24 22:16 Resp 16 02/15/24 22:16 BP 150/97 H 02/15/24 23:40 Pulse Ox 96 02/15/24 22:16 O2 Del Method Room Air 02/15/24 22:16 Common normals: no apparent distress, average body habitus, oriented x3, no limitations, healthy appearing, alert and well nourished [facility] Common normals: normocephalic and head/scalp atraumatic Eye Common normals: PERRL, EOMs intact bilaterally and conjunctivae normal Respiratory Common normals: normal respiratory effort, no retractions, no use of accessory muscles and clear to auscultation bilaterally Cardio Common normals: regular rate, regular rhythm, S1 normal heart sound and S2 normal heart sound GI Common normals: Normal to inspection, nondistended, normoactive bowel sounds present, soft to palpation and non-tender Other: normal external genitalia small amount of blood in the vaginal vault. no active bleeding bimanual exam is neg Extremity Common normals: normal to inspection and full ROM Neuro Common normals: oriented x3, CN's II-XII intact bilaterally and moves all extremities Psych Appearance: grossly normal Course Vital Signs Vital signs: Vital Signs Temperature 98.8 F 02/15/24 22:16 Pulse Rate 77 02/15/24 22:16 Respiratory Rate 16 02/15/24 22:16 Blood Pressure 173/96 H 02/15/24 22:16 Pulse Oximetry 96 02/15/24 22:16 Oxygen Delivery Method Room Air 02/15/24 22:16 Temperature 98.8 F 02/15/24 22:16 Pulse Rate 77 02/15/24 22:16 Respiratory Rate 16 02/15/24 22:16 Blood Pressure 150/97 H 02/15/24 23:40 Pulse Oximetry 96 02/15/24 22:16 Oxygen Delivery Method Room Air 02/15/24 22:16 MDM - OB/Uterine Contractions MDM Narrative Medical decision making narrative: [id number]. LMP 12/17/23. Believes she is 5-6 weeks . No problems with first 2 pregnancies. small amount of blood this AM after wiping. Did have intercourse last PM passed more blood tonight. no real pain or systemic symptoms. Otherwise is asymptomatic abdominal exam nontender pelvic with small amount of blood in vault. no active bleeding or adnexa tenderness. Quant very low at 17. Patient is hypertensive. Discussed with operations support analyst [employer] Dr Dowling who feels she is likely having a miscarriage and does not feel this represents pre eclampsia. Recommend she have her BP rechecked tomorrow. Patient and family informed of the working diagnosis and discharged home Lab Data Labs: Lab Results 02/15/24 02/15/24 Range/Units 22:38 22:55 WBC 9.7 (4.0-11.0) 10^3/uL RBC 4.47 (4.20-5.40) 10^6/uL Hgb 12.4 (12.0-16.0) g/dL Hct 37.3 (36.0-48.0) % MCV 83.4 (81.0-99.0) fL MCH 27.7 (26.7-34.0) pg MCHC 33.2 (29.9-35.2) g/dL RDW 12.4 (11.0-15.0) % Plt Count 311 (150-450) 10^3/uL MPV 10.4 (9.5-13.5) fL Neut % (Auto) 55.7 (43.0-75.0) % Lymph % (Auto) 38.1 (20.5-60.0) % [place] % (Auto) 5.0 (1.7-12.0) % Eos % (Auto) 0.8 L (0.9-7.0) % Baso % (Auto) 0.3 (0.2-2.0) % Neut # (Auto) 5.4 (1.4-6.5) 10^3/uL Lymph # (Auto) 3.7 (1.2-3.8) 10^3/uL Porter # (Auto) 0.5 (0.3-0.8) 10^3/uL Eos # (Auto) 0.1 (0.0-0.7) 10^3/uL Baso # (Auto) 0.0 (0.0-0.1) 10^3/uL Abs Immat Gran (auto) 0.01 (0.00-0.03) 10^3/uL Imm/Tot Granulo (auto) 0.1 (0.0-0.5) % HCG, Quant 17 mIU/mL Urine Color Lt. yellow (YELLOW) Urine Clarity Clear (CLEAR) Urine pH 7.5 (5.0-9.0) Ur Specific [place] 1.020 (1.005-1.025) Urine Protein Trace (NEG/TRACE) mg/dL Urine Glucose (UA) Negative (NEGATIVE) mg/dL Urine Ketones Negative (NEGATIVE) mg/dL Urine Occult Blood Large A (NEGATIVE) Urine Nitrite Negative (NEGATIVE) Urine Bilirubin Negative (NEGATIVE) Urine Urobilinogen 0.2 (0.2-1.0) EU/dL Ur Leukocyte Esterase Trace A (NEGATIVE) Urine RBC 20-50 A (0-2) #/HPF Urine WBC 0-2 A (NONE SEEN) #/HPF Ur Squamous Epith Cells Rare (NONE/RARE) #/LPF Urine Crystals None seen (None Seen) #/HPF Urine Bacteria None seen (NONE SEEN) #/HPF Urine Casts None seen (NONE SEEN) #/LPF Urine Mucus None seen (NONE SEEN) Ur Culture Indicated? No Discharge Plan Discharge Chief Complaint: OB/Uterine Contractions Clinical Impression: Threatened , Hypertension Patient Disposition: Home, Self-Care Prescriptions / Home Meds: No Action No Known Home Medications Print Language: Yoruba Instructions: Threatened Miscarriage (ED), Hypertension (ED) Additional Instructions: have blood pressure rechecked tomorrow by Dr Robb or return to the ER to have it rechecked Referrals: Jason Robb MD [Primary Care Provider] - 1 week
[2024-02-15 22:43] LABS: Basophils Percent Auto 0.3 % (0.2-2.0); Eosinophils Absolute Auto 0.1 10^3/uL (0.0-0.7); Eosinophils Percent Auto 0.8 % (0.9-7.0); Hematocrit 37.3 % (36.0-48.0); Hemoglobin 12.4 g/dL (12.0-16.0); Immature Granulocytes Abs Auto 0.01 10^3/uL (0.00-0.03); Immature Granulocytes Pct Auto 0.1 % (0.0-0.5); Lymphocytes Absolute Auto 3.7 10^3/uL (1.2-3.8); Lymphocytes Percent Auto 38.1 % (20.5-60.0); Mean Corpuscular HGB Conc 33.2 g/dL (29.9-35.2); Mean Corpuscular Hemoglobin 27.7 pg (26.7-34.0); Mean Corpuscular Volume 83.4 fL (81.0-99.0); Mean Platelet Volume 10.4 fL (9.5-13.5); Monocytes Absolute Auto 0.5 10^3/uL (0.3-0.8); Neutrophils Absolute Auto 5.4 10^3/uL (1.4-6.5); Neutrophils Percent Auto 55.7 % (43.0-75.0); Platelet Count 311 10^3/uL (150-450); Red Blood Count 4.47 10^6/uL (4.20-5.40); Red Cell Distribution Width 12.4 % (11.0-15.0); White Blood Count 9.7 10^3/uL (4.0-11.0)
[2024-02-15 23:00] LABS: Bilirubin Urine NEGATIVE (NEGATIVE); Blood Urine LARGE (NEGATIVE); Clarity Urine CLEAR (CLEAR); Color Urine LT. YELLOW (YELLOW); Glucose Urine UA NEGATIVE (NEGATIVE); Ketones Urine NEGATIVE (NEGATIVE); Leukocyte Esterase Urine TRACE (NEGATIVE); Nitrite Urine NEGATIVE (NEGATIVE); Protein Urine TRACE mg/dL (NEG/TRACE); Urobilinogen Urine 0.2 EU/dL (0.2-1.0); pH Urine 7.5 (5.0-9.0)
[2024-02-15 23:02] LABS: Urine Microscopic Indicated YES
[2024-02-15 23:04] LABS: HCG Quantitative 17 mIU/mL
[2024-02-15 23:06] LABS: Bacteria Urine NONE SEEN #/HPF (NONE SEEN); Cast Seen? NONE SEEN #/LPF (NONE SEEN); Crystals Seen? None Seen #/HPF (None Seen); Mucus Urine NONE SEEN (NONE SEEN); RBC Urine 20-50 #/HPF (0-2); Squamous Epithelial Cell Urine RARE #/LPF (NONE/RARE); Urine Culture Indicated NO; WBC Urine 0-2 #/HPF (NONE SEEN)
[2024-02-15 23:40] VITALS: BP 150/97
== END 2024-02-15 23:53 | disposition home or self-care (01) ==
PROVIDERS: Emergency Provider Internal Medicine; PCP Family Medicine
DX: O20.0 Threatened abortion (principal); Z3A.01 Less than 8 weeks gestation of pregnancy; I10 Essential (primary) hypertension
CPT/HCPCS: 36415; 81001; 84702; 85025; 99283

== ENCOUNTER 2024-02-17 11:39 | Outpatient (OUT) | payer OTHER, SELFPAY ==
--- OUTSIDE RECORDS SUMMARY | 2024-02-17 11:48 | XMS_ITS | CCD ---
Author Organization [facility] Care Team Providers Care Dementia Program Director Name Role Phone ASHLYN ., DR MCKEON [...] HOY ., DR PERDUE Primary Care Unavailable SAHLYNLINDA Attending Unavailable Problems Active Problems Problem Classification [...] spec) Not detected Normal NOT DETECTED [facility] Comment on above: Result Comment: When [...] for this test is supported by the Senior Marketing Specialist of Health and Human Service's declaration that [...] used). Performed By: #### C VDTBH #### [facility] [address] [place] [address] Dr. Alisha Vargas INFLUENZA A AND B AGon 05-22 [facility] [place] SEE BELOW Normal [facility] Comment on above: Result Comment: Nega tive for Flu A protein angiten. Infection due to Flu A cannot be ruled out. Flu A angiten in the sample may be below the detection limit of the test. Performed By: #### C VDTBH #### [facility] [address] [place] [address] Dr. [facility]isah [facility] SEE [facility] Normal [facility] Comment on above: Result Comment: Nega tive for Flu B protein antigen. Infection due to Flu B cannot be ruled out. Flu B antigen in the sample may be below the detection limit of the test. Performed By: #### C VDTBH #### [facility] [address] [place] [address] Dr. Alisha Vargas INFLUENZA A AG Negative Normal NEGATIVE SEE COMMENT [facility] Comment on above: Performed By: #### C VDTBH #### [facility] [address] [place] [address] Dr. Alisha Vargas INFLUENZA B AG Negative Normal NEGATIVE SEE COMMENT [facility] Comment on above: Performed By: #### C VDTBH #### [facility] [address] [place] [address] Dr. Alisha Vargas PAP ACOG PANEL 2: 22 to 30on 2021 . . Normal [facility] Comment on above: Performed By: #### C VDTBH #### [facility] [address] [place] [address] Dr. Alisha Vargas Age Gdln ACOG Testing 21-29 Normal [facility] Comment on above: Performed By: #### C VDTBH #### [facility] [address] [place] [address] Dr. Alisha Vargas DIAGNOSIS: Comment [facility] Comment on above: Result Comment: NEGA TIVE FOR INTRAEPITHELIAL LESION OR MALIGNANCY. Performed By: #### C VDTBH #### [facility] [address] [place] [address] Dr. Alisha Vargas Methodology: Comment Normal [facility] Comment on above: Result Comment: This liquid based ThinPrep(R) pap test was screened with the use of an image guided system. Performed By: #### C VDTBH #### [facility] [address] [place] [address] Dr. Alisha Vargas Note: Comment Normal [facility] Comment on above: Result Comment: The Pap smear is a screening test designed to aid in the detection of premalignant and malignant conditions of the uterine cervix. It is not a diagnostic procedure and should not be used as the sole means of detecting cervical cancer. Both false-positive and false-negative reports do occur. . Performed By: #### C VDTBH #### [facility] [address] [place] [address] Dr. Alisha Vargas Performed by: Comment Normal [facility] Comment on above: Result Comment: Rolando Gonzales, Cnmt (ASCP) Performed By: #### C VDTBH #### [facility] [address] [place] [address] Dr. Alisha Vargas Reflex Criteria: Comment Normal [facility] Comment on above: Result Comment: The HPV DNA reflex criteria were not met with this specimen result therefore, no HPV testing was performed. . Performed By: #### C VDTBH #### [facility] [address] [place] [address] Dr. Alisha Vargas Specimen adequacy: Comment Normal [facility] Comment on above: Result Comment: Sati sfactory for evaluation. Endocervical and/or squamous metaplastic cells (endocervical component) are present. Performed By: #### C VDTBH #### [facility] [address] [place] [address] Dr. Alisha Vargas CBC AUTO DIFFon 06-17-2021 BASO # 0.0 103/ul Normal 0.0-0.1 [facility] Comment on above: Performed By: #### C BC #### [facility] [address] [place] [address] Dr. Alisha Vargas Basophils/100 WBC (Bld) 0.3 % Normal 0.2-2.0 [facility] Comment on above: Performed By: #### C BC #### [facility] [address] [place] [address] Dr. Alisha Vargas EO # 0.0 103/ul Normal 0.0-0.7 [facility] Comment on above: Performed By: #### C BC #### [facility] [address] [place] [address] Dr. Alisha Vargas Eosinophils/100 WBC (Bld) 0.3 % Critically low 0.9-7.0 [facility] Comment on above: Performed By: #### C BC #### [facility] [address] [place] [address] Dr. Alisha Vargas Erythrocyte distribution width (RBC) [Ratio] 13.8 % Normal 11.0-15.0 [facility] Comment on above: Performed By: #### C BC #### [facility] [address] [place] [address] Dr. Alisha Vargas Hematocrit (Bld) [Volume fraction] 39.1 % Normal 36.0-48.0 [facility] Comment on above: Performed By: #### C BC #### [facility] [address] [place] [address] Dr. Alisha Vargas Hemoglobin (Bld) [Mass/Vol] 12.8 g/dL Normal 12.0-16.0 [facility] Comment on above: Performed By: #### C BC #### [facility] [address] [place] [address] Dr. Alisha Vargas IG # 0.02 10e3/ul Normal 0.00-0.03 [facility] Comment on above: Performed By: #### C BC #### [facility] [address] [place] [address] Dr. Alisha Vargas IG % 0.3 % Normal 0.0-0.5 [facility] Comment on above: Performed By: #### C BC #### [facility] [address] [place] [address] Dr. Alisha Vargas LYMPH # 0.7 103/ul Critically low 1.2-3.8 [facility] Comment on above: Performed By: #### C BC #### [facility] [address] [place] [address] Dr. Alisha Vargas Lymphocytes/100 WBC (Bld) 11.3 % Critically low 20.5-60.0 [facility] Comment on above: Performed By: #### C BC #### [facility] [address] [place] [address] Dr. Alisha Vargas MANUAL DIFF REQ NO Normal [facility] Comment on above: Performed By: #### C BC #### [facility] [address] [place] [address] Dr. Alisha Vargas MCH (RBC) [Entitic mass] 27.1 pg Normal 26.7-34.0 [facility] Comment on above: Performed By: #### C BC #### [facility] [address] [place] [address] Dr. Alisha Vargas MCHC (RBC) [Mass/Vol] 32.7 g/dL Normal 29.9-35.2 [facility] Comment on above: Performed By: #### C BC #### [facility] [address] [place] [address] Dr. Alisha Vargas MCV (RBC) [Entitic vol] 82.8 fL Normal 81.0-99.0 [facility] Comment on above: Performed By: #### C BC #### [facility] [address] [place] [address] Dr. Alisha Vargas MONO # 0.7 103/ul Normal 0.3-0.8 [facility] Comment on above: Performed By: #### C BC #### [facility] [address] [place] [address] Dr. Alisha Vargas Monocytes/100 WBC (Bld) 11.6 % Normal 1.7-12.0 [facility] Comment on above: Performed By: #### C BC #### [facility] [address] [place] [address] Dr. Alisha Vargas NEUT # 4.7 103/ul Normal 1.4-6.5 [facility] Comment on above: Performed By: #### C BC #### [facility] [address] [place] [address] Dr. Alisha Vargas Neutrophils/100 WBC (Bld) 76.2 % Critically high 43.0-75.0 [facility] Comment on above: Performed By: #### C BC #### [facility] [address] [place] [address] Dr. Alisha Vargas Platelet mean volume (Bld) [Entitic vol] 10.2 fL Normal 9.5-13.5 [facility] Comment on above: Performed By: #### C BC #### [facility] [address] [place] [address] Dr. Alisha Vargas PLT 289 103/ul Normal 150-450 [facility] Comment on above: Performed By: #### C BC #### [facility] [address] [place] [address] Dr. Alisha Vargas RBC 4.72 106/ul Normal 4.20-5.40 [facility] Comment on above: Performed By: #### C BC #### [facility] [address] [place] [address] Dr. Alisha Vargas WBC 6.2 103/ul Normal 4.0-11.0 [facility] Comment on above: Performed By: #### C BC #### [facility] [address] [place] [address] Dr. Alisha Vargas [facility]03 SARS-CoV-2 (COVID-19) RNA ODILIA+probe Ql (Unsp spec) Not detected Normal NOT DETECTED [facility] Comment on above: Result Comment: When [...] for this test is supported by the [place] of Health and Human Service's declaration that [...] used). Performed By: #### C VDTBH #### [facility] [address] [place] [address] Dr. Alisha Vargas ER URINE PROFILEon 2 Bilirubin Ql (U) Negative Normal NEGATIVE [facility] Comment on above: Performed By: #### C VDTBH #### [facility] [address] [place] [address] Dr. Alisha Vargas Clarity (U) CLEAR Normal CLEAR [facility] Comment on above: Performed By: #### C VDTBH #### [facility] [address] [place] [address] Dr. Alisha Vargas Color (U) LT. YELLOW Normal YELLOW [facility] Comment on above: Performed By: #### C VDTBH #### [facility] [address] [place] [address] Dr. Alisha Vargas ERUAHD A micrscopic examination will be performed if indicated. Normal [facility] Comment on above: Performed By: #### C VDTBH #### [facility] [address] [place] [address] Dr. Alisha Vargas Glucose Ql (U) Negative Normal NEGATIVE [facility] Comment on above: Performed By: #### C VDTBH #### [facility] [address] [place] [address] Dr. Alisha Vargas Hemoglobin Ql (U) MODERATE Abnormal NEGATIVE [facility] Comment on above: Performed By: #### C VDTBH #### [facility] [address] [place] [address] Dr. Alisha Vargas Ketones Ql (U) Negative Normal NEGATIVE [facility] Comment on above: Performed By: #### C VDTBH #### [facility] [address] [place] [address] Dr. Alisha Vargas LEUKOCYTES SMALL Abnormal NEGATIVE [facility] Comment on above: Performed By: #### C VDTBH #### [facility] [address] [place] [address] Dr. Alisha Vargas Nitrite Ql (U) Negative Normal NEGATIVE [facility] Comment on above: Performed By: #### C VDTBH #### [facility] [address] [place] [address] Dr. Alisha Vargas pH (U) 5.5 [pH] Normal 5-9 [facility] Comment on above: Performed By: #### C VDTBH #### [facility] [address] [place] [address] Dr. Alisha Vargas SPEC GRAVITY 1.015 Normal 1.005-<=1.025 [facility] Comment on above: Performed By: #### C VDTBH #### [facility] [address] [place] [address] Dr. Alisha Vargas UA PROTEIN Negative Normal NEGATIVE/ TRACE [facility] Comment on above: Performed By: #### C VDTBH #### [facility] [address] [place] [address] Dr. Alisha Vargas UR MICRO IND INDICATED Normal [facility] Comment on above: Performed By: #### C VDTBH #### [facility] [address] [place] [address] Dr. Alisha Vargas Urobilinogen Qn (U) 0.2 {Jayda'U}/dL Normal 0.2 - 1.0 [facility] Comment on above: Performed By: #### C VDTBH #### [facility] [address] [place] [address] Dr. Alisha Vargas GROUP A STREP CULTUREon 06-03 S. pyogenes Ag Ql (Unsp spec) Culture Observations: NEGATIVE FOR GROUP A STREPTOCOCCUS. Normal [facility] Comment on above: Performed By: #### S SCRWILMA BowerTCX #### [facility] [address] [place] [address] Dr. Alisha Vargas INFLUENZA A AND B AGon 06-17 INFLUBNEGH SEE BELOW Normal [facility] Comment on above: Result Comment: Nega tive for Flu B protein antigen. Infection due to Flu B cannot be ruled out. Flu B antigen in the sample may be below the detection limit of the test. Performed By: #### I NFLUAB #### [facility] [address] [place] [address] Dr. Alisha Vargas INFLUENZA A AG Positive Abnormal NEGATIVE SEE COMMENT [facility] Comment on above: Performed By: #### I NFLUAB #### [facility] [address] [place] [address] Dr. Alisha Vargas INFLUENZA B AG Negative Normal NEGATIVE SEE COMMENT [facility] Comment on above: Performed By: #### I NFLUAB #### [facility] [address] [place] [address] Dr. Alisha Vargas INFLUPOS SEE BELOW Normal [facility] Comment on above: Result Comment: NOTE : Live attenuated influenzae vaccine viruses can cause a positive result for a rapid influenza diagnostic test if administered up to 7 days prior to rapid testing. Performed By: #### I NFLUAB #### [facility] [address] [place] [address] Dr. Alisha Vargas INTERNAL CONTROLS Within Normal Limits Normal Wi thin Normal Limits [facility] Comment on above: Performed By: #### I NFLUAB #### [facility] [address] [place] [address] Dr. Alisha Vargas LACTATE/LACTIC ACIDon 2021 Lactate [Moles/Vol] 1.5 mmol/L Normal 0.7-2.0 [facility] Comment on above: Performed By: #### L ACT #### [facility] [address] [place] [address] Dr. Alisha Vargas PROF 14(COMP METB)on 022 Albumin [Mass/Vol] 3.4 g/dL Critically low 3.5-5.0 [facility] Comment on above: Performed By: #### C MP #### [facility] [address] [place] [address] Dr. Alisha Vargas Albumin/Globulin [Mass ratio] 0.8 {ratio} Normal [facility] Comment on above: Performed By: #### C MP #### [facility] [address] [place] [address] Dr. Alisha Vargas ALP [Catalytic activity/Vol] 103 U/L Normal 38-126 [facility] Comment on above: Performed By: #### C MP #### [facility] [address] [place] [address] Dr. Alisha Vargas ALT [Catalytic activity/Vol] 43 U/L Normal 9-52 [facility] Comment on above: Performed By: #### C MP #### [facility] [address] [place] [address] Dr. Alisha Vargas Anion gap [Moles/Vol] 15.1 mmol/L Normal [facility] Comment on above: Performed By: #### C MP #### [facility] [address] [place] [address] Dr. Alisha Vargas AST [Catalytic activity/Vol] 31 U/L Normal 14-36 [facility] Comment on above: Performed By: #### C MP #### [facility] [address] [place] [address] Dr. Alisha Vargas Bilirubin [Mass/Vol] 0.3 mg/dL Normal 0.2-1.3 [facility] Comment on above: Performed By: #### C MP #### [facility] [address] [place] [address] Dr. lAisha Vargas Calcium [Mass/Vol] 8.8 mg/dL Normal 8.4-10.2 [facility] Comment on above: Performed By: #### C MP #### [facility] [address] [place], [place] [id number] Dr. Alisha Vargas Chloride [Moles/Vol] 99 mmol/L Normal 98-107 [facility] Comment on above: Performed By: #### C MP #### [facility] [address] [place] [address] Dr. Alisha Vargas CO2 [Moles/Vol] 24.0 mmol/L Normal 22.0-30.0 [facility] Comment on above: Performed By: #### C MP #### [facility] [address] [place] [address] Dr. Alisha Vargas Creatinine [Mass/Vol] 0.83 mg/dL Normal 0.52-1.04 [facility] Comment on above: Performed By: #### C MP #### [facility] [address] [place] [address] Dr. Alisha Vargas EGFR-AF DJIBOUTIAN >60 Normal >=60 [facility] Comment on above: Performed By: #### C MP #### [facility] [address] [place] [address] Dr. Alisha Vargas EGFR-NON AF DJIBOUTIAN >60 Normal >=60 [facility] Comment on above: Performed By: #### C MP #### [facility] [address] [place] [address] Dr. Alisha Vargas Globulin (S) [Mass/Vol] 4.5 g/dL Normal [facility] Comment on above: Performed By: #### C MP #### [facility] [address] [place] [address] Dr. Alisha Vargas Glucose [Mass/Vol] 110 mg/dL Critically high 74-106 [facility] Comment on above: Performed By: #### C MP #### [facility] [address] [place] [address] Dr. Alisha Vargas Potassium [Moles/Vol] 4.1 mmol/L Normal 3.4-5.0 [facility] Comment on above: Performed By: #### C MP #### [facility] [address] [place] [address] Dr. Alisha Vargas Protein [Mass/Vol] 7.9 g/dL Normal 6.1-8.2 [facility] Comment on above: Performed By: #### C MP #### [facility] [address] [address] [address] Alisha Vargas Sodium [Moles/Vol] 134 mmol/L Critically low 137-145 [facility] Comment on above: Performed By: #### C MP #### [facility] [address] [place] [address] Dr. Alisha Vargas Urea nitrogen [Mass/Vol] 9.0 mg/dL Normal 7.0-17.0 [facility] Comment on above: Performed By: #### C MP #### [facility] [address] [place] [address] Dr. Alisha Vargas Urea nitrogen/Creatinin e [Mass ratio] 10.8 mg/mg Normal [facility] Comment on above: Performed By: #### C MP #### [facility] [address] [place] [address] Dr. Alisha Vargas STREPT SCREENon 06-17-2021 STREP SCREEN A Negative Normal NEGATIVE [facility] Comment on above: Performed By: #### S SCRN, GRASTCX #### [facility] [address] [place] [address] Dr. Alisha Vargas URINE MICROSCOPIC ONLYon BACTERIA TRACE Abnormal NONE SEEN [facility] Comment on above: Performed By: #### C VDTBH #### [facility] [address] [place] [address] Dr. Alisha Vargas Bacteria identified Cx Nom (U) NOT INDICATED Normal [facility] Comment on above: Performed By: #### C VDTBH #### [facility] [address] [place] [address] Dr. Alisha Vargas CAST NONE SEEN Normal NONE SEEN [facility] Comment on above: Performed By: #### C VDTBH #### [facility] [address] [place] [address] Dr. Alisha Vargas Crystals LM Nom (Urine sed) NONE SEEN Normal NONE SEEN [facility] Comment on above: Performed By: #### C VDTBH #### [facility] [address] [place] [address] Dr. Alisha Vargas Epithelial cells LM Ql (Urine sed) RARE Normal NONE SEEN /RARE [facility] Comment on above: Performed By: #### C VDTBH #### [facility] [address] [place] [address] Dr. Alisha Vargas MUCOUS NONE SEEN Normal NONE SEEN [facility] Comment on above: Performed By: #### C VDTBH #### [facility] [address] [place] [address] Dr. Alisha Vargas RBC 0-2 Normal 0-2 [facility] Comment on above: Performed By: #### C VDTBH #### [facility] [address] [place] [address] Dr. Alisha Vargas WBC 2-5 Abnormal NONE SEEN [facility] Comment on above: Performed By: #### C VDTBH #### [facility] [address] [place] [address] Dr. Alisha Vargas XR CHEST 1 Von [...] MANN PINO Date: 2021-06-17 21:52 Normal [facility] CBC AUTO DIFFon 06-04-2021 BASO # 0.0 103/ul Normal 0.0-0.1 [facility] Comment on above: Performed By: #### C VDTBH #### [facility] [address] [place] [address] Dr. Alisha Vargas Basophils/100 WBC (Bld) 0.3 % Normal 0.2-2.0 [facility] Comment on above: Performed By: #### C VDTBH #### [facility] [address] [place] [address] Dr. Alisha Vargas EO # 0.2 103/ul Normal 0.0-0.7 [facility] Comment on above: Performed By: #### C VDTBH #### [facility] [address] [place] [address] Dr. Alisha Vargas Eosinophils/100 WBC (Bld) 1.5 % Normal 0.9-7.0 [facility] Comment on above: Performed By: #### C VDTBH #### [facility] [address] [place] [address] Dr. Alisha Vargas Erythrocyte distribution width (RBC) [Ratio] 14.3 % Normal 11.0-15.0 [facility] Comment on above: Performed By: #### C VDTBH #### [facility] [address] [place] [address] Dr. Alisha Vargas Hematocrit (Bld) [Volume fraction] 31.6 % Critically low 36.0-48.0 [facility] Comment on above: Performed By: #### C VDTBH #### [facility] [address] [place] [address] Dr. Alisha Vargas Hemoglobin (Bld) [Mass/Vol] 10.3 g/dL Critically low 12.0-16.0 [facility] Comment on above: Performed By: #### C VDTBH #### [facility] [address] [place] [address] Dr. Alisha Vargas IG # 0.03 10e3/ul Normal 0.00-0.03 [facility] Comment on above: Performed By: #### C VDTBH #### [facility] [address] [place] [address] Dr. Alisha Vargas IG % 0.3 % Normal 0.0-0.5 [facility] Comment on above: Performed By: #### C VDTBH #### [facility] [address] [place] [address] Dr. Alsiha Vargas LYMPH # 3.3 103/ul Normal 1.2-3.8 [facility] Comment on above: Performed By: #### C VDTBH #### [facility] [address] [place] [address] Dr. Alisha Vargas Lymphocytes/100 WBC (Bld) 30.3 % Normal 20.5-60.0 [facility] Comment on above: Performed By: #### C VDTBH #### [facility] [address] [place] [address] Dr. Alisha Vargas MANUAL DIFF REQ NO Normal [facility] Comment on above: Performed By: #### C VDTBH #### [facility] [address] [place] [address] Dr. Alisha Vargas MCH (RBC) [Entitic mass] 27.4 pg Normal 26.7-34.0 [facility] Comment on above: Performed By: #### C VDTBH #### [facility] [address] [place] [address] Dr. Alisha Vargas MCHC (RBC) [Mass/Vol] 32.6 g/dL Normal 29.9-35.2 [facility] Comment on above: Performed By: #### C VDTBH #### [facility] [address] [place] [address] Dr. Alisha Vargas MCV (RBC) [Entitic vol] 84.0 fL Normal 81.0-99.0 [facility] Comment on above: Performed By: #### C VDTBH #### [facility] [address] [place] [address] Dr. Alisha Vargas MONO # 0.6 103/ul Normal 0.3-0.8 [facility] Comment on above: Performed By: #### C VDTBH #### [facility] [address] [place] [address] Dr. Alisha Vargas Monocytes/100 WBC (Bld) 5.3 % Normal 1.7-12.0 [facility] Comment on above: Performed By: #### C VDTBH #### [facility] [address] [place] [address] Dr. Alisha Vargas NEUT # 6.7 103/ul Critically high 1.4-6.5 [facility] Comment on above: Performed By: #### C VDTBH #### [facility] [address] [address] [address] Alisha Vargas Neutrophils/100 WBC (Bld) 62.3 % Normal 43.0-75.0 [facility] Comment on above: Performed By: #### C VDTBH #### [facility] [address] [address] [address] Alisha Vargas Platelet mean volume (Bld) [Entitic vol] 11.2 fL Normal 9.5-13.5 [facility] Comment on above: Performed By: #### C VDTBH #### [facility] [address] [address] [address] Alisha Vargas PLT 234 103/ul Normal 150-450 [facility] Comment on above: Performed By: #### C VDTBH #### [facility] [address] [place] [address] Dr. Alisha Vargas RBC 3.76 106/ul Critically low 4.20-5.40 [facility] Comment on above: Performed By: #### C VDTBH #### [facility] [address] [place] [address] Dr. Alisha Vagras WBC 10.8 103/ul Normal 4.0-11.0 [facility] Comment on above: Performed By: #### C VDTBH #### [facility] [address] [place] [address] Dr. Alisha Vargas ASYMPTOMATIC COVID-19 ANTIGE Non 06-02-2021 EUA Statement SEE BELOW Normal [facility] Comment on above: Result Comment: This test [...] sooner. Performed By: #### C VDAGA #### [facility] [address] [place] [address] Dr. Alisha Vargas SARS-CoV-2 (COVID-19) RNA ODILIA+probe Ql (Unsp spec) Negative Normal NEGATIVE [facility] Comment on above: Result Comment: Nega tive results are presumptive. They do not preclude infection and should not be used as the sole basis for treatment decisions. Additional confirmatory testing by a molecular method should be considered. Performed By: #### C VDAGA #### [facility] [address] [place] [address] Dr. Alisha Vargas CBC AUTO DIFFon 06-02-2021 BASO # 0.0 103/ul Normal 0.0-0.1 [facility] Comment on above: Performed By: #### C BC #### [facility] [address] [place] [address] Dr. Alisha Vargas Basophils/100 WBC (Bld) 0.2 % Normal 0.2-2.0 [facility] Comment on above: Performed By: #### C BC #### [facility] [address] [place] [address] Dr. Alisha Vargas EO # 0.1 103/ul Normal 0.0-0.7 [facility] Comment on above: Performed By: #### C BC #### [facility] [address] [place] [address] Dr. Alisha Vargas Eosinophils/100 WBC (Bld) 0.4 % Critically low 0.9-7.0 [facility] Comment on above: Performed By: #### C BC #### [facility] [address] [place] [address] Dr. Alisha Vargas Erythrocyte distribution width (RBC) [Ratio] 14.1 % Normal 11.0-15.0 [facility] Comment on above: Performed By: #### C BC #### [facility] [address] [place] [address] Dr. Alisha Vargas Hematocrit (Bld) [Volume fraction] 33.2 % Critically low 36.0-48.0 [facility] Comment on above: Performed By: #### C BC #### [facility] [address] [place] [address] Dr. Alisha Vargas Hemoglobin (Bld) [Mass/Vol] 10.8 g/dL Critically low 12.0-16.0 [facility] Comment on above: Performed By: #### C BC #### [facility] [address] [place] [address] Dr. Alisha Vargas IG # 0.05 10e3/ul Critically high 0.00-0.03 [facility] Comment on above: Performed By: #### C BC #### [facility] [address] [place] [address] Dr. Alisha Vargas IG % 0.4 % Normal 0.0-0.5 [facility] Comment on above: Performed By: #### C BC #### [facility] [address] [place] [address] Dr. Alisha Vargas LYMPH # 2.2 103/ul Normal 1.2-3.8 [facility] Comment on above: Performed By: #### C BC #### [facility] [address] [place] [address] Dr. Alisha Vargas Lymphocytes/100 WBC (Bld) 19.5 % Critically low 20.5-60.0 [facility] Comment on above: Performed By: #### C BC #### [facility] [address] [place] [address] Dr. Alisha Vargas MANUAL DIFF REQ NO Normal [facility] Comment on above: Performed By: #### C BC #### [facility] [address] [place] [address] Dr. Alisha Vargas MCH (RBC) [Entitic mass] 26.8 pg Normal 26.7-34.0 [facility] Comment on above: Performed By: #### C BC #### [facility] [address] [place] [address] Dr. Alisha Vargas MCHC (RBC) [Mass/Vol] 32.5 g/dL Normal 29.9-35.2 [facility] Comment on above: Performed By: #### C BC #### [facility] [address] [place] [address] Dr. Alisha Vargas MCV (RBC) [Entitic vol] 82.4 fL Normal 81.0-99.0 [facility] Comment on above: Performed By: #### C BC #### [facility] [address] [place] [address] Dr. Alisha Vargas MONO # 0.6 103/ul Normal 0.3-0.8 [facility] Comment on above: Performed By: #### C BC #### [facility] [address] [place] [address] Dr. Alisha Vargas Monocytes/100 WBC (Bld) 5.1 % Normal 1.7-12.0 [facility] Comment on above: Performed By: #### C BC #### [facility] [address] [place] [address] Dr. Alisha Vargas NEUT # 8.3 103/ul Critically high 1.4-6.5 [facility] Comment on above: Performed By: #### C BC #### [facility] [address] [place] [address] Dr. Alisha Vargas Neutrophils/100 WBC (Bld) 74.4 % Normal 43.0-75.0 [facility] Comment on above: Performed By: #### C BC #### [facility] [address] [place] [address] Dr. Alisha Vargas Platelet mean volume (Bld) [Entitic vol] 12.1 fL Normal 9.5-13.5 [facility] Comment on above: Performed By: #### C BC #### [facility] [address] [place] [address] Dr. Alisha Vargas PLT 257 103/ul Normal 150-450 [facility] Comment on above: Performed By: #### C BC #### [facility] [address] [place] [address] Dr. Alisha Vargas RBC 4.03 106/ul Critically low 4.20-5.40 [facility] Comment on above: Performed By: #### C BC #### [facility] [address] [place] [address] Dr. Alisha Vargas WBC 11.2 103/ul Critically high 4.0-11.0 [facility] Comment on above: Performed By: #### C BC #### [facility] [address] [place] [address] Dr. Alisha Vargas DRUG SCREEN RAPID (URINE)on 06-02-2021 AMP Negative Normal NEGATIVE [facility] Comment on above: Performed By: #### D RUGRPD #### [facility] [address] [place] [address] Dr. Alisha Vargas BAR Negative Normal NEGATIVE [facility] Comment on above: Performed By: #### D RUGRPD #### [facility] [address] [place] [address] Dr. Alisha Vargas BUP Negative Normal NEGATIVE [facility] Comment on above: Performed By: #### D RUGRPD #### [facility] [address] [place] [address] Dr. Alisha Vargas BZO Negative Normal NEGATIVE [facility] Comment on above: Performed By: #### D RUGRPD #### [facility] [address] [place] [address] Dr. Alisha Vargas DEBI Negative Normal NEGATIVE [facility] Comment on above: Performed By: #### D RUGRPD #### [facility] [address] [place] [address] Dr. Alisha Vargas CUT-OFFS SEE BELOW Normal [facility] Comment on above: Result Comment: AMP [...] ng/mL Performed By: #### D RUGRPD #### [facility] [address] [place] [address] Dr. Alisha Vargas DRUG CUT HEADER DRUG CLASS TEST SYST EM CUT-OFF CONCENTRATIONS ARE FOLLOWS: Normal [facility] Comment on above: Performed By: #### D RUGRPD #### [facility] [address] [address] [address] Alisha Vargas mAMP Negative Normal NEGATIVE [facility] Comment on above: Performed By: #### D RUGRPD #### [facility] [address] [place] [address] Dr. Alisha Vargas MTD Negative Normal NEGATIVE [facility] Comment on above: Performed By: #### D RUGRPD #### [facility] [address] [place] [address] Dr. Alisha Vargas OPI Negative Normal NEGATIVE [facility] Comment on above: Performed By: #### D RUGRPD #### [facility] [address] [place] [address] Dr. Alisha Vargas OXY Negative Normal NEGATIVE [facility] Comment on above: Performed By: #### D RUGRPD #### [facility] [address] [place] [address] Dr. Alisha Vargas PCP Negative Normal NEGATIVE [facility] Comment on above: Performed By: #### D RUGRPD #### [facility] [address] [place] [address] Dr. Alisha Vargas PPX Negative Normal NEGATIVE [facility] Comment on above: Performed By: #### D RUGRPD #### [facility] [address] [address] [address] Alisha Vargas TCA Negative Normal NEGATIVE [facility] Comment on above: Performed By: #### D RUGRPD #### [facility] [address] [place] [address] Dr. Alisha Vargas THC Negative Normal NEGATIVE [facility] Comment on above: Performed By: #### D RUGRPD #### [facility] [address] [place], [place] [address] Dr. Alisha Vargas TYPE AND SCREENon 06-02-2021 TYPE AND SCREEN Negative Normal [facility] Comment on above: Performed By: #### [facility] #### [facility] [address] [place], [place] [address] Dr. Alisha Vargas Encounters Encounter Date Encounter [...] . Payers Date Payer Category Payer Medicaid [id number] 1996 Unknown [id number] 2.16.84 [id number] 1996 Unknown [id number] 2.16.84 [id number] 1996 Unknown [id number] 2.16.84 [id number] 1996 Unknown [id number] 2.16.84 [id number] 1996 Unknown [id number] 2.16.84 [id number] 1996 Unknown [id number] 2.16.84 [id number] 1996 Unknown [id number] 2.16.84 [id number] 1959 Unknown [id number] 1959 Unknown [id number] Summary Purpose Family History No Family History Records FoundNo Family History Records Found Advance Directives No Advanced Directives Records FoundNo Advanced Directives Records Found Additional Source Comments INFORMATION SOURCE (unrecogn ized section and content) DATE CREATED AUTHOR 05/28/2022 [facility] DATE CREATED AUTHOR AUTHOR'S TAMI CERNA 10/24/2023 [facility] FOR RECORDS PERTAINING TO PATIENTS WHO [...] BE BASED ON THE PRIMARY CLINICAL RECORDS. [facility] provides no warranty or guarantee of the accuracy or completeness of information in this document.
[2024-02-17 12:46] LABS: HCG Quantitative 5 mIU/mL
== END 2024-02-17 11:40 | disposition home or self-care (01) ==
LOC: LAB 11:41
PROVIDERS: PCP Family Medicine; Visit Provider Obstetrics & Gynecology
DX: O20.0 Threatened abortion (principal)
CPT/HCPCS: 36415; 84702

== ENCOUNTER 2024-12-30 09:55 | Outpatient (OUT) | payer OTHER, SELFPAY ==
--- OUTSIDE RECORDS SUMMARY | 2024-12-11 15:34 | XMS_ITS ---
Author Name Auto Generated Organization [facility] Care Team Providers Care Women'S Ministry Director Name Role Phone LINDA GOLDBERG Attending Unavailable LINDA GOLDBERG Attending Unavailable ELVIRA NICOLE Attending Unavailable NETTE BECERRA Primary Care Unavailable PROBLEMS DATE TYPE CONDITION / CODE ATTENDING STATUS [facility] 07/24/2024 Unknown Laceration witho ut foreign body of right thumb without damage to nail, initial encounter / S61.011A(ICD-10) ELVIRA NICOLE Active [facility] PROCEDURES No Procedure Records Found RESULTS ALLERGIES No Allergies Records Found ENCOUNTERS ADMIT/DISCHARGE ACCOUNT NUMBER ADMITTING ENCOUNTER CLASS LOCATION SOURCE 12/11/2024/ 5 [id number] Ambulatory Building:[facility] EPIC 07/24/2024/ 5 [id number] Emergency Building:EVER Room: 14Bed: 14 [facility] 02/16/2024/ 4 [id number] Ambulatory Building:[facility] EPIC PAYERS ENCOUNTER GUARANTOR PAYER SUBSCRIBER SOURCE 12/11/2024 UZIEL POLOAINTANCEDOB: [place], [place] [address]Pjt: (HP) Primary Insurance:[facility] MEDICAIDPolicy Number: [id number] Date:2023-10-04 UZIEL Licea QUAINTANCEDOB: [id number] [place] [address] [facility] EPIC 07/24/2024 UZIEL QUAINTANZEDOB: [place], [place] [address]Qfo: (HP) Primary Insurance:[facility] PLPolicy Number: [id number] Date:7638-18-65GN [address] [place] [address]KS: UZIEL GOMESANZEDOB: [id number] [place], [place] [address]Rpu: () [facility] 02/16/2024 UZIEL GOMESANCEDOB: [place], [place] [address]Aiv: () Primary Insurance:[facility] MEDICAIDPolicy Number: [id number] Date:2023-10-04 UZIEL GOMESANCEDOB: [id number] [place] [address] [facility] EPIC
== END 2024-12-30 09:56 | disposition home or self-care (01) ==
LOC: LAB 09:56
PROVIDERS: PCP Family Medicine; Visit Provider Obstetrics & Gynecology
DX: N80.9 Endometriosis, unspecified (principal)
CPT/HCPCS: 36415; 84144

== ENCOUNTER 2025-02-27 11:53 | Outpatient (OUT) | payer OTHER, SELFPAY ==
--- OUTSIDE RECORDS SUMMARY | 2025-02-27 11:57 | XMS_ITS | Clinical Summary ---
Author Organization [facility] Address [address] [place] [address] Care Team Providers Care Formation Fracturing Operator Name Role Phone Jason Robb MD Primary Care Provider [phone] Allergies No known active allergies Medications MedicationSigDispense QuantityRefillsLast FilledStart DateEnd DateStatus letrozole (Femara) 2.5 MG chemo tablet Indications:Female infertilityTake 1 tablet (2.5 mg total) by mouth Daily for 5 days. 5 tablet Expired Encounters DateTypeDepartmentCare JnvjLhfnbzqgyst05/07/2025Telephone [facility] [address] [place] [phone] Jose Dowling DO 01/09/2025Telephone [facility] [address] [facility] [phone] Miley Cortez MA 12/30/2024linisync Result Encounter [facility] Department Unsolicited Jose Dowling DO 12/11/2024 3:40 PM EDTOffice Visit [facility] [address] [facility] [phone] Jose Dowling DO Female infertility; Lgygcgpoimsvn21/08/2025amboo flowsheet [facility] [address] [place] [address] Jose Dowling, 12/10/2024Travelfrom Last 3 Months Family History Medical HistoryRelationNameCommentsDiabetesMaternal GrandfatherDiabetesMaternal GrandmotherHypertensionPaternal GrandfatherRelationNameStatusCommentsMaternal GrandfatherMaternal GrandmotherPaternal Grandfather Social History Tobacco UseTypesPacks/DayYears UsedDateSmoking Tobacco: Never Assessed CommentsNoSex and Gender InformationValueDate RecordedSex Assigned at BirthNot on fileLegal FqzXaliju43/15/2023 11:47 PM EDTGender IdentityNot on fileSexual OrientationNot on file Last Filed Vital Signs Vital SignReadingTime TakenCommentsBlood Crasjcdf351/6809 3:57 PM EDT Pulse--Temperature--Respiratory Rate--Oxygen Saturation--Inhaled Oxygen Concentration--Gulryy543 kg (233 lb 12.8 oz)12/11/2024 3:57 PM OFTPtidie235.4 cm (5')12/11/2024 3:57 PM EDTBody Mass Index45.6609 3:57 PM EDT Plan of Treatment Not on file Procedures Procedure NamePriorityDate/TimeAssociated DiagnosisCommentsALL PROGESTERONE Lmnyshz5512/30/2024 10:05 AM EDT from Last 3 Months Results * ALL PROGESTERONE (12/30/2024 10:05 AM EDT)ComponentValueRef RangeTest Method Analysis TimePerformed AtPathologist TcfbyqutyEXUQILFOTPNB55.4. ng/mLTBH Comment: ? Follicular phase ? 0.1 - ?? 0.9 ? Luteal phase ? 1.8 - ??23.9 ? Ovulation phase ?0.1 - ??12.0 ?First trimester ?11.0 - ??44.3 ?Second trimester ?? 25.4 - ??83.3 ?Third trimester ?58.7 - 214.0 ? Postmenopausal ? 0.0 - ?? 0.1 Performed at: ??CB - [facility] [place] [address] [facility], [place], [place] ??[id number] Offline Editor: Conor House PhD, Phone: ??[phone] Specimen (Source)Anatomical Location / LateralityCollection Method / Volume Collection TimeReceived Time12/30/2024 10:05 AM EDT12/30/2024 10:07 AM EDT Narrative [facility] - 12/31/2024 7:09 AM EDT Authorizing ProviderResult TypeResult StatusCorey Josey DOCLINISYNCFinal Result Performing OrganizationAddressCity/State/ZIP CodePhone Number [facility]IN[facility] from Last 3 Months Insurance Care Teams Team MemberRelationshipSpecialtyStart Jason Robb MD [address] [place] [address] PCP - GeneralFamily Cmanjact03/18/23
--- OUTSIDE RECORDS SUMMARY | 2025-02-27 11:57 | XMS_ITS | Clinical Summary ---
Author Organization [facility] Address [address], [address] [place] [address] Care Team Providers Care Energy Consultant Name Role Phone Jason Robb MD Primary Care Provider [phone] Allergies No known active allergies Medications No known medications Immunizations ImmunizationAdministration DatesNext DueTDaP, ADACEL (age 10y-64y), BOOSTRIX (age 10y+), IM, 0.5mL07/24/2024 Social History Tobacco UseTypesPacks/DayYears UsedDateSmoking Tobacco: NeverSmokeless Tobacco: Never Tobacco Cessation:Counseling Given: Not Answered Alcohol UseStandard Drinks/WeekCommentsNever0 (1 standard drink = 0.6 oz pure alcohol)AUDIT-CAnswerDate RecordedQ1: How often do you have a drink containing alcohol?Never07/24/2024Q2: How many drinks containing alcohol do you have on a typical day when you are drinking?Patient does not drink07/24/2024Q3: How often do you have six or more drinks on one occasion?Never07/24/2024CommentsNo Sex and Gender InformationValueDate RecordedSex Assigned at BirthNot on file Legal QxlEsqiyg75/21/2025 8:01 AM EDTGender IdentityNot on fileSexual OrientationNot on file Last Filed Vital Signs Vital SignReadingTime TakenCommentsBlood Qsjtbzyo747/9407/24/2024 8:07 AM EDT Fiysn1517 8:07 AM IXOZirrvclhkzi35.8 ??C (98.2 ??F)07/24/2024 8:07 AM EDTRespiratory Uuld444907/24/2024 8:07 AM EDTOxygen Gwdvmzmtgn63%07/24/2024 8:07 AM EDTInhaled Oxygen Concentration--Weight--Height--Body Mass Index-- Plan of Treatment Health MaintenanceDue DateLast DoneCommentsFlu vaccine (#1)11/03/2024OVID-19 Vaccine (1 - season)2024DTaP/Tdap/Td vaccine (3 - Td or Tdap) 5007/24/2024, 03/18/2017Polio vaccineAged OutNo longer eligible based on patient's age to complete this topic Insurance Care Teams Team MemberRelationshipSpecialtyStart Date Jason Robb MD [address] [place] [address] PCP - GeneralFamily Medicine07/24/24
--- OUTSIDE RECORDS SUMMARY | 2025-02-27 11:57 | XMS_ITS | Patient Health Record ---
Author Organization [facility] [place] Address [address] [place] [address] Care Team Providers Care Mold Yard Supervisor Name Role Phone Keny Robb Primary Care Provider Allergies No Known Allergies Results Component Value Reference Range Notes Progesterone Reviewed date:12/31/2024 09:06:40 PM Interpretation: Performing Lab: Notes/Report: [facility] , Progesterone 10.4 . ng/mL Postmenopausal 0.0 - 0.1 Performed at: [facility] - [facility] [place] Follicular phase 0.1 - 0.9 Second trimester 25.4 - 83.3 First trimester 11.0 - 44.3 Ovulation phase 0.1 - 12.0 Luteal phase 1.8 - 23.9 Third trimester 58.7 - 214.0 Mobile Engineer: Conor House PhD, Phone: [phone] [address] [place], [place] [id number] Performing Lab: see note LC - [facility] Reason For Referral No Information Social History Tobacco Use: Social History Observation Description Date Details (start date - stop date) Never Smoker NA - NA Tobacco Use/Smoking Question Answer Notes Patient is a nonsmoker Alcohol Screen (Audit-C) Question Answer Notes Did you have a drink containing alcohol in the p ast year? 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
--- OUTSIDE RECORDS SUMMARY | 2025-02-27 11:57 | XMS_ITS | CCD ---
Author Organization [facility] Care Team Providers Care Terminologist Name Role Phone JOSEY ., DR MCKEON Admitting Unavailable JOSEY ., DR MCKEON Attending Unavailable HOY ., DR PERDUE Primary Care Unavailable RHETT CABRERA Admitting Unavailable RHETT CABRERA Attending Unavailable MARIAM ., DR PERDUE Primary Care Unavailable RHETT CABRERA Consulting Unavailable JOSEY ., DR MCKEON Admitting Unavailable JOSEY ., DR MCKEON Attending Unavailable HOY ., DR PERDUE Primary Care Unavailable JOSEY ., DR MCKEON Consulting Unavailable KARASIK ., DR PALACIOS Admitting Unavailabl e KARASIK ., DR PALACIOS Attending Unavailabl e HOY ., DR PERDUE Primary Care Unavailable KARASIK ., DR PALACIOS Consulting Unavailabl e KARASIK ., DR PALACIOS Procedure Practitioner Maxine johnble MARIAM ., DR PERDUE Primary Care Unavailable VERONICA, DR RAFA Licea Admitting Unavailable VERONICA, DR RAFA Licea Attending Unavailable TANO ., NIK MCKEON Consulting Unavailabl e MANN PINO Consulting Unavailable JOSEY ., DR MCKEON Admitting Unavailable JOSEY ., DR MCKEON Attending Unavailable HOY ., DR PERDUE Primary Care Unavailable Nette Robb MD Primary Care Provider [phone] Nette Robb MD Primary Care Provider [phone] ELVIRA NICOLE Attending Unavailable NETTE ROBB Primary Care Unavailable Nette Robb MD Primary Care Provider [phone] LINDA DOWLING Attending Unavailable LINDA DOWLING Attending Unavailable Nette Robb MD Primary Care Provider [id number] Medications Current Medications MedicationDrug Class(es)DatesSig (Normalized)Sig (Original)letrozole 2.5 mg oral tablet (2 sources)Aromatase InhibitorStart: 12-11-2024 End: 31-10-7047mwle 1 tablet by mouth once dailyletrozole (Femara) 2.5 MG chemo tablet Indications: Female infertility , Endometriosis Take 1 tablet (2.5 mg total) by mouth Daily for 5 days. 5 tablet 12/11/2024 12/16/2024 Active Completed/Discontinued Medications MedicationDrug Class(es)DatesSig (Normalized)Sig (Original)levonorgestrel 0.202657 mg/hr intrauterine system (10 sources)Progestin, Progestin-containing Intrauterine DeviceStart: 02-03-2023 End: 70-25-3219Xqlksaosyjclvh intrauterine device End: 26-97-7061Kghyqsevnqpxnu (Mirena, 52 MG,) 20 MCG/DAY intrauterine device 1 each by Intrauterine route if needed (every 5 years). 02/16/2024 Discontinued Problems Active Problems Problem ClassificationProblemDateDocumented DateEpisodic/ChronicEndometriosis (2 sources)Endometriosis (clinical); Translations: [Endometriosis, unspecified] 24-62-8334ZraoixgJedkss infertility (2 sources)Female infertility; Translations: [Female infertility, unspecified] 61-18-8557YhmgaesDjuzvivckv during ; abruptio placenta; placenta previa (2 sources)Threatened miscarriage; Translations: [Threatened ]02-16-2024 EpisodicOpen wounds of extremities (2 sources)Laceration of right thumb; Translations: [Laceration without foreign body of right thumb without damage to nail, initial encounter]Onset: 07-24-2024 57-33-2366ObaypcxwTftrsj media and related conditions (4 sources)Otitis media, unspecified, right ear; Translations: [OTITIS MEDIA UNSPECIFIED RIGHT EAR]Onset: 19-93-9548CfpxailpBmtpvezdwswb (1 source)CONTACT W/AND (SUSP) EXPOS COVID-19; Translations: [CONTACT W/AND (SUSP) EXPOS COVID-19]Onset: 05-27-2022 Past or Other Problems Problem ClassificationProblemDateDocumented DateEpisodic/ChronicFever of unknown origin (4 sources)Fever, unspecified; Translations: [FEVER UNSPECIFIED]Onset: 30-29-7473FvldxqxzUfuethmucohcs and screening for infectious disease (1 source)Encounter for screening for human papillomavirus (HPV); Translations: [ENC SCREENING HUMAN PAPILLOMAVIRUS]Onset: 65-52-9879ObcxzbdeAnsdudvuv (1 source)Influenza due to other identified influenza virus with other respiratory manifestations; Translations: [FLU D/T OTH ID FLU VIR OTH RSP MANF] Onset: 53-25-9539AateeheuEX-related trauma to perineum and vulva (1 source)Second degree perineal laceration during delivery; Translations: [SECOND DEG PERINEAL LAC DUR DELIV]Onset: 10-33-9119RvkhhkgzWftdx complications of (3 sources)Maternal care for excessive growth, third trimester, not applicable or unspecified; Translations: [MAT CARE EXCSS FTL GRTH 3RD TRI UNS] Onset: 97-77-6238CmsqzzydEtllk and delivery including normal (9 sources)Encounter for care and examination of lactating mother; Translations: [Encounter for routine follow-up]Onset: 75-23-2110LjxfpcphPtnpb screening for suspected conditions (not mental disorders or infectious disease) (4 sources)Encounter for screening for malignant neoplasm of cervix; Translations: [ENC SCREENING MALIG NEOPLASM CERV]Onset: 13-52-5095Xdtuygic Residual codes; unclassified (1 source)39 weeks gestation of ; Translations: [39 WEEKS GESTATION OF ]Onset: 71-11-9815HfjuipolWjzoupi tract infections (1 source)Urinary tract infection, site not specified; Translations: [UTI SITE NOT SPECIFIED]Onset: 52-34-6700Noeofxah Results Test NameValueInterpretationReference RangeFacilityALL PROGESTERONEon 12-31-2024 UYETKZVDHRVC26.4 ng/mL.[facility] HealthcareComment on above:Follicular phase 0.1 - 0.9 Luteal phase 1.8 - 23.9 Ovulation phase 0.1 - 12.0 First trimester 11.0 - 44.3 Second trimester 25.4 - 83.3 Third trimester 58.7 - 214.0 Postmenopausal 0.0 - 0.1 Performed at: [facility] Lab[address] [id number] Electronic Installer: Conor House PhD, Phone: [phone] [facility] Repairon [phone] Nicole MD 07/24/2024 9:16 AM Lac Repair Date/Time: 07/24/2024 9:15 AM Performed by: Elvira Nicole MD Authorized by: Elvira iNcole MD Consent: Consent obtained: Verbal Consent given by: Patient Risks discussed: Infection, pain, poor cosmetic result and poor wound healing Alternatives discussed: No treatment [place] protocol: Patient identity confirmed: Verbally with patient Anesthesia: Anesthesia method: None Laceration details: Location: Finger Finger location: L thumb Length (cm): 1 Depth (mm): 2 Exploration: Limited defect created (wound extended): no Hemostasis achieved with: Direct pressure Wound exploration: entire depth of wound visualized Wound extent: no foreign bodies/material noted Treatment: Area cleansed with: Soap and water Debridement: None Undermining: None Scar revision: no Skin repair: Repair method: Tissue adhesive Approximation: Approximation: Close Repair type: Repair type: Simple Post-procedure details: Dressing: Open (no dressing) Procedure completion: Tolerated well, no immediate complicationsB[facility] PREG QUANT HCGon 09-81-8393KCA HTBNYUJMYVLK1fKN/mLNOMS HealthcareComment on above:5-50 0.2-1 WEEK 50-500 1-2 WEEKS 100-5,000 2-3 WEEKS 500-10,000 3-4 WEEKS 1,000-50,000 4-5 WEEKS 10,000-100,000 5-6 WEEKS 15,000-200,000 6-8 WEEKS 10,000-100,000 2-3 MONTHS [facility] HealthcareUS PELVIS W/ TRANSVAGINALon [id number] [address] Ultrasound Report Signed Patient: UZIEL MELGOZA MR#: [id number] : 1995 Acct:[id number] Age/Sex: 28 / F ADM Date: 11/01/23 Loc: [facility] Attending Dr: Linda Dowling D.O. Ordering Physician: Linda Dowling D.O. Date of Service: 11/01/23 Procedure(s): US pelvis w/ transvaginal Accession Number(s): [id number] cc: Linda Dowling D.O.; Nette Robb M.D. The [address] [address] Patient Name: UZIEL MELGOZA MRN: [id number] date: 1995 Sex: F Assigned Patient Location: [facility] Current Patient Location: Accession/Order Number: [id number] Exam Date: 11/01/2023 13:04 Report Date: 11/02/2023 06:41 At the request of: LINDA DOWLING Procedure: US pelvis w/ transvaginal EXAMINATION: US pelvis w/ transvaginal HISTORY: PELVIC PAIN ; right lower quadrant pain COMPARISON: Ultrasound pelvis 01/22/2023 TECHNIQUE: Transabdominal and/or transvaginal sonographic examination was performed as indicated by examination type. FINDINGS: UTERUS: Normal size and appearance. Uterus size: 7.9 x 3.9 x 5.5 cm ENDOMETRIUM: Normal homogeneous appearance. Endometrial thickness: 4 mm RIGHT OVARY: Contains a 1.8 cm slightly irregular cysts/collapsing follicle. Duplex Doppler demonstrates normal waveform and flow; resistive index 0.5. Ovary size: 3.3 x 2.5 x 2.2 cm LEFT OVARY: Normal size and appearance. Duplex Doppler demonstrates normal waveform and flow; resistive index 0.6. Ovary size: 2.2 x 1.6 x 2.5 cm CUL-DE-SAC: Unremarkable. No significant free fluid. BLADDER: Unremarkable. OTHER: None. US/US pelvis w/ transvaginal IMPRESSION: 1. Right ovary contains an irregular 1.8 cm cyst; likely collapsing cyst/follicle. Electronically authenticated by: TERRY GOMEZ Date: 11/02/2023 06:41 Dictated By: Terry Gomez M.D. Signed By: 11/02/2343 DD/ 0 TD/TT: [employer] Supervisor:TBHRadiology, Radiologist, - 11/02/2023 The [place] [id number] Ultrasound Report Signed Patient: UZIEL MELGOZA#: [id number] : 1995 Acct:[id number] Age/Sex: 28 / F ADM Date: 11/01/23 Loc: [facility] Attending Dr: Linda Dowling D.O. Ordering Physician: Linda Dowling D.O. Date of Service: 11/01/23 Procedure(s): US pelvis w/ transvaginal Accession Number(s): [id number] cc: Linda Dowling D.O.; Nette Robb M.D. [place] [address] Patient Name: UZIEL MELGOZA MRN: [id number] date: 1995 Sex: F Assigned Patient Location: [facility] Current Patient Location: Accession/Order Number: [id number] Exam Date: 11/01/2023 13:04 Report Date: 11/02/2023 06:41 At the request of: LINDA DOWLING Procedure: US pelvis w/ transvaginal EXAMINATION: US pelvis w/ transvaginal HISTORY: PELVIC PAIN ; right lower quadrant pain COMPARISON: Ultrasound pelvis 01/22/2023 TECHNIQUE: Transabdominal and/or transvaginal sonographic examination was performed as indicated by examination type. FINDINGS: UTERUS: Normal size and appearance. Uterus size: 7.9 x 3.9 x 5.5 cm ENDOMETRIUM: Normal homogeneous appearance. Endometrial thickness: 4 mm RIGHT OVARY: Contains a 1.8 cm slightly irregular cysts/collapsing follicle. Duplex Doppler demonstrates normal waveform and flow; resistive index 0.5. Ovary size: 3.3 x 2.5 x 2.2 cm LEFT OVARY: Normal size and appearance. Duplex Doppler demonstrates normal waveform and flow; resistive index 0.6. Ovary size: 2.2 x 1.6 x 2.5 cm CUL-DE-SAC: Unremarkable. No significant free fluid. BLADDER: Unremarkable. OTHER: None. US/US pelvis w/ transvaginal IMPRESSION: 1. Right ovary contains an irregular 1.8 cm cyst; likely collapsing cyst/follicle. Electronically authenticated by: TERRY GOMEZ Date: 11/02/2023 06:41 Dictated By: Terry Gomez M.D. Signed By: 11/02/2343 DD/ 0 TD/TT: [employer] Supervisor: JOHN HealthcareRadiology Study observation (narrative)JOHN CoburnUS PELVIS W/ TRANSVAGINALOrdered By: Radiologist Radiology on 84-23-6421[facility] Work Phone: [phone] PCR (CVDTB)on 87-83-2849SNBN-CoV-2 (COVID- 19) RNA ODILIA+probe Ql (Unsp spec)Not detectedNormalNOT DETECTEDThe [facility] HospitalComtr[facility] on above:Result Comment: When diagnostic testing is negative, the [...] for this test is supported by the [place] of Health and Human Service's declaration that circumstances exist to justify the emergency use of in vitro diagnostics for the detection and/or diagnosis of the virus that causes COVID-19. This EUA will remain in effect for the duration of the COVID-19 declaration justifying emergency of IVDs, unless it is terminated or revoked by the FDA (after which the test may no longer be used).Performed By: #### CVDTBH #### [facility] [address] [place] [address] Dr. Alisha VargasINFLUENZA A AND B AGon 40-80-5286FBQKFSBIZHBUX [facility] on above:Result Comment: Negative for Flu A protein angiten. Infection due to Flu A cannot be ruled out. FluA angiten in the sample may be below the detection limit of the test.Performed By: #### CVDTBH #### [facility] [address] [place] [address] Dr. Alisha VargasINFLUBNEGHSANGIE [facility] on above: Result Comment: Negative for Flu B protein antigen. Infection due to Flu B cannot be ruled out. FluB antigen in the sample may be below the detection limit of the test.Performed By: #### CVDTBH #### [facility] [address] [place] [address] Dr. Alisha Luna AGNegativeNormalNEGATIVE SEE COMMENTOhioHealth Mansfield Hospital on above:Performed By: #### CVDTBH #### [facility] [address] [place] [address] Dr. Alisha Akhtar AGNegativeNormalNEGATIVE SEE COMMENTThe [facility] on above:Performed By: #### CVDTBH #### [facility] [address] [place] [address] Dr. Alisha Durand ACOG PANEL 2: 21 to 29on 2021..NormalThe [facility] Doctors HospitalComment on above:Performed By: #### CVDTBH #### [facility] [address] [place] [address] Dr. Alisha Cortes Gdln ACOG Eefwjco02-81NbfpcjAykThe [facility] on above:Performed By: #### CVDTBH #### [facility] [address] [place] [address] Dr. Alisha VargasDIAGNOSIS:CommentNoThe [facility] on above: Result Comment: NEGATIVE FOR INTRAEPITHELIAL LESION OR MALIGNANCY.Performed By: #### CVDTBH #### [facility] [address] [place] [address] Dr. Alisha VargasMethodology:CommentNormCorey Hospital on above: Result Comment: This liquid based ThinPrep(R) pap test was screened with the use of an image guided system.Performed By: #### CVDTBH #### [facility] [address] [place] [address] Dr. Alisha VargasNote:CommentKeenan Private Hospitalment on above:Result Comment: The Pap smear is a screening test designed to aid in the detection of premalignant and malignant conditions of the uterine cervix. It is not a diagnostic procedure and should not be used as the sole means of detecting cervical cancer. Both false-positive and false-negative reports do occur. .Performed By: #### CVDTBH #### [facility] [address] [place] [address] Dr. Alisha VargasPerformed by:CommentACMC Healthcare System Glenbeigh on above: Result Comment: Sanam Melvin, Roller (ASCP)Performed By: #### CVDTBH #### [place] [address] Dr[address] Alisha VargasReflex Criteria:CommentACMC Healthcare System Glenbeigh on above:Result Comment: The HPV DNA reflex criteria were not met with this specimen result therefore, no HPV testing was performed. .Performed By: #### CVDTBH #### [place] [address] Dr[address] Alisha VargasSpecimen adequacy:CommentACMC Healthcare System Glenbeigh on above:Result Comment: Satisfactory for evaluation. Endocervical and/or squamous metaplastic cells (endocervical component) are present.Performed By: #### CVDTBH #### [facility] [address] [place] [address] Dr. Alisha Glaser AUTO DIFFon 46-68-9872QRYY #0.0 103/ulNormal0.0-0.1[facility] HospitalComment on above:Performed By: #### CBC #### [facility] [address] [place] [address] Dr. Alisha VargasBasophils/100 WBC (Bld)0.3 %Normal0.2-2.0[facility] Comment on above:Performed By: #### CBC #### [facility] [address] [place] [address] Dr. Alisha Calhoun #0.0 103/ulNormal0.0-0.7The [facility] on above: Performed By: #### CBC #### [facility] [address] [place] [address] Dr. Alisha Garciaosinophils/100 WBC (Bld)0.3 %Critically low0.9-7.0The [facility] Doctors HospitalComment on above:Performed By: #### CBC #### [facility] [address] [place] [address] Dr. Alisha Garciarythrocyte distribution width (RBC) [Ratio]13.8 %Mlvudj95.0-15.0 The [facility] Doctors HospitalComment on above:Performed By: #### CBC #### [facility] [address] [place] [address] Dr. Alisha VargasHematocrit (Bld) [Volume fraction]39.1 %Dagdbv59.0-48.0The [facility] HospitalComment on above:Performed By: #### CBC #### [facility] [address] [place] [address] Dr. Alisha VargasHemoglobin (Bld) [Mass/Vol]12.8 g/kAWrbdgc70.0-16.0The [facility] HospitalComment on above:Performed By: #### CBC #### [facility] [address] [place] [address] Dr. Alisha Jacob #0.02 10e3/ulNormal0.00-0.03The [facility] HospitalComment on above:Performed By: #### CBC #### [facility] [address] [place] [address] Dr. Alisha VargasIG %0.3 %Normal0.0-0.5The [facility] HospitalComment on above: Performed By: #### CBC #### [facility] [address] [place] [address] Dr. Alisha CaldwellH #0.7 103/ulCritically low1.2-3.8The [facility] Comment on above:Performed By: #### CBC #### [facility] [address] [place] [address] Dr. Alisha Patrickmphocytes/100 WBC (Bld)11.3 %Critically low20.5-60.0The [facility] HospitalComment on above:Performed By: #### CBC #### [facility] [address] [place] [address] Dr. Alisha Stewart DIFF REQNONormalThe [facility] Doctors HospitalComment on above: Performed By: #### CBC #### [facility] [address] [place] [address] Dr. Alisha Fernandes (RBC) [Entitic mass]27.1 quZereit74.7-34.0The [facility] HospitalComment on above:Performed By: #### CBC #### [facility] [address] [place] [address] Dr. Alisha Fernandes (RBC) [Mass/Vol]32.7 g/aJIeyrws96.9-35.2The [facility] HospitalComment on above:Performed By: #### CBC #### [facility] [address] [place] [address] Dr. Alisha Fernandes (RBC) [Entitic vol]82.8 iAFtlcit36.0-99.0The [facility] HospitalComment on above:Performed By: #### CBC #### [facility] [address] [place] [address] Dr. Alisha Nino #0.7 103/ulNormal0.3-0.8The [facility] HospitalComment on above:Performed By: #### CBC #### [facility] [address] [place] [address] Dr. Alisha Carrollocytes/100 WBC (Bld)11.6 %Normal1.7-12.0The [facility] Comment on above:Performed By: #### CBC #### [facility] [address] [place] [address] Dr. Alisha Rucker #4.7 103/ulNormal1.4-6.5The [facility] HospitalComment on above:Performed By: #### CBC #### [facility] [address] [place] [address] Dr. Alisha Juniorutrophils/100 WBC (Bld)76.2 %Critically high43.0-75.0The [facility] HospitalComment on above:Performed By: #### CBC #### [facility] [address] [place] [address] Dr. Alisha VargasPlatelet mean volume (Bld) [Entitic vol]10.2 fLNormal9.5-13.5The [facility] HospitalComment on above:Performed By: #### CBC #### [facility] [address] [place] [address] Dr. Alisha VargasPLT289 103/wqNgqnnt471-038Qyc [facility] HospitalComment on above: Performed By: #### CBC #### [facility] [address] [place] [address] Dr. Alisha VargasRBC4.72 106/ulNormal4.20-5.40The [facility] HospitalComment on above:Performed By: #### CBC #### [facility] [address] [place] [address] Dr. Alisha VargasWBC6.2 103/ulNormal4.0-11.0The [facility] HospitalComment on above: Performed By: #### CBC #### [facility] [address] [place] [address] Dr. Alisha VargasCovid-19 PCR ([facility])on 24-47-6334EMYR-CoV-2 (COVID-19) RNA ODILIA+probe Ql (Unsp spec)Not detectedNormalNOT DETECTEDThe [facility] Comment on above:Result Comment: When diagnostic testing is negative, the [...] for this test is supported by the [place] of Health and Human Service's declaration that circumstances exist to justify the emergency use of in vitro diagnostics for the detection and/or diagnosis of the virus that causes COVID-19. This EUA will remain in effect for the duration of the COVID-19 declaration justifying emergency of IVDs, unless it is terminated or revoked by the FDA (after which the test may no longer be used).Performed By: #### CVDTBH #### [facility] [address] [place] [address] [address] Alisha Tripp URINE PROFILEon 22-83-4287Pnfhqvzwo Ql (U)NegativeNormal NEGATIVEMercy Health St. Elizabeth Young[facility] HospitalComment on above:Performed By: #### CVDTBH #### [facility] [address] [place] [address] Dr. Alisha VargasClarity (U)CLEARNormalCLEARMercy Health St. Elizabeth Youngstown HospitalComment on above: Performed By: #### CVDTBH #### [facility] [address] [place] [address] Dr. Alisha Galindo (U)LT. YELLOWNormalYELLOWMercy Health St. Elizabeth Youngstown HospitalComment on above:Performed By: #### CVDTBH #### [facility] [address] [place] [address] Dr. Alisha Rivers micrscopic examination will be performed if indicated. NormalMercy Health St. Elizabeth Youngstown HospitalComment on above:Performed By: #### CVDTBH #### [facility] [address] [place] [address] Dr. Alisha VargasGlucose Ql (U)NegativeNormalNEGATIVEMercy Health St. Elizabeth Young[facility] HospitalComment on above:Performed By: #### CVDTBH #### [facility] [address] [place] [address] Dr. Alisha VargasHemoglobin Ql (U)MODERATEAbnormalNEGATIVEMemorial Health System on above:Performed By: #### CVDTBH #### [facility] [address] [place] [address] Dr. Alisha VargasKetones Ql (U)NegativeNormalNEGATIVEMercy Health St. Elizabeth [facility] HospitalComment on above:Performed By: #### CVDTBH #### [facility] [address] [place] [address] Dr. Alisha VargasLEUKOCYTESSMALLAbnormalNEGATIVEMercy Health St. Elizabeth Young[facility] HospitalComment on above:Performed By: #### CVDTBH #### [facility] [address] [place] [address] Dr. Alisha Álvarez Ql (U)NegativeNormalNEGATIVEThe [facility] Doctors HospitalComment on above:Performed By: #### CVDTBH #### [facility] [address] [place] [address] Dr. Alisha VargaspH (U)5.5 [pH]Normal5-9The [facility] HospitalComment on above: Performed By: #### CVDTBH #### [facility] [address] [place] [address] Dr. Alisha VargasSPEC GRAVITY1.724Mtjqkg4.005-<=1.025The [facility] Doctors HospitalComment on above:Performed By: #### CVDTBH #### [facility] [address] [place] [address] Dr. Alisha Sprague PROTEINNegativeNormalNEGATIVE/ TRACEThe [facility] Comment on above:Performed By: #### CVDTBH #### [facility] [address] [place] [address] Dr. Alisha Kennedy MICRO INDINDICATEDNoKettering Health TroyComment on above: Performed By: #### CVDTBH #### [facility] [address] [place] [address] Dr. Alisha Raygoza Qn (U)0.2 {Jayda'U}/dLNormal0.2 - 1.0[facility] HospitalComment on above:Performed By: #### CVDTBH #### [facility] [address] [place] [address] Dr. Alisha Miller A STREP CULTUREon 06-17-2021. pyogenes Ag Ql (Unsp spec) Culture Observations: NEGATIVE FOR GROUP A STREPTOCOCCUS.NormalMercy Health St. Elizabeth Youngstown HospitalComment on above: Performed By: #### SSCRN, GRASTCX #### [facility] [facility] [address] [place] [address] Dr. Alisha VargasINFLRAMIROZA A AND B AGon [id number] [facility] HospitalComment on above:Result Comment: Negative for Flu B protein antigen. Infection due to Flu B cannot be ruled out. FluB antigen in the sample may be below the detection limit of the test.Performed By: #### INFLUAB #### [facility] [address] [place] [address] Dr. Alisha Luna AGPositiveAbnormalNEGATIVE SEE COMMENTThe [facility] on above:Performed By: #### INFLUAB #### [facility] [address] [place] [address] Dr. Alisha Akhtar AGNegativeNormalNEGATIVE SEE COMMENTThe [facility] on above:Performed By: #### INFLUAB #### [facility] [address] [place] [address] Dr. Alisha Garcia [facility] on above: Result Comment: NOTE: Live attenuated influenzae vaccine viruses can cause a positive result for a rapid influenza diagnostic test if administered up to 7 days prior to rapid testing.Performed By: #### INFLUAB #### [facility] [address] [place] [address] Dr. Alisha VargasINTERNAL CONTROLSWithin Normal LimitsNormalWithin Normal Limits The [facility] on above:Performed By: #### INFLUAB #### [facility] [address] [place] [address] Dr. Alisha VargasLACTATE/LACTIC ACIDon [id number] [Moles/Vol]1.5 mmol/L Normal0.7-2.0The [facility] on above:Performed By: #### LACT #### [facility] [address] [place] [address] Dr. Alisha VargasPROF 14(COMP METB)on [id number] [Mass/Vol]3.4 g/dL Critically low3.5-5.0The [facility] on above:Performed By: #### CMP #### [facility] [address] [place] [address] Dr. Alisha VargasAlbumin/Globulin [Mass ratio]0.8 {ratio}NormalThe [facility] on above:Performed By: #### CMP #### [facility] [address] [address] [address] Alisha Gaspar [Catalytic activity/Vol]103 U/SOwhnck02-625Teg [facility] HospitalComment on above:Performed By: #### CMP #### [facility] [address] [address] [address] Alisha WalterT [Catalytic activity/Vol]43 U/LNormal9-52The [facility] Comment on above:Performed By: #### CMP #### [facility] [address] [address] [address] Alisha Diazon gap [Moles/Vol]15.1 mmol/LNormalThe [facility] Comment on above:Performed By: #### CMP #### [facility] [address] [place] [address] Dr. Alisha VargasAST [Catalytic activity/Vol]31 U/GPmrihs52-74Dre [facility] HospitalComment on above:Performed By: #### CMP #### [facility] [address] [place] [address] Dr. Alisha VargasBilirubin [Mass/Vol]0.3 mg/dLNormal0.2-1.3TTwin [facility] Comment on above:Performed By: #### CMP #### [facility] [address] [place] [address] Dr. Alisha VargasCalcium [Mass/Vol]8.8 mg/dLNormal8.4-10.2[facility] Comment on above:Performed By: #### CMP #### [facility] [address] [place] [address] Dr. Alisha aVrgasChloride [Moles/Vol]99 mmol/MHwwlqv82-183Cdr [facility] Comment on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 Grandfather Hypertension Paternal Grandfather SURGICAL HISTORY Past Surgical History: Procedure Laterality Date LAPAROSCOPY DIAGNOSTIC / BIOPSY / ASPIRATION / LYSIS PAP SMEAR 11/08/2018 LGSIL REVIEW OF SYSTEMS Review of Systems: Review of Systems Constitutional: Negative. HENT: Negative. Eyes: Negative. Respiratory: Negative. Cardiovascular: Negative. Gastrointestinal: Negative. Genitourinary: Negative. Musculoskeletal: Negative. Skin: Negative. Neurological: Negative. All other systems reviewed and are negative. Hematological: Negative. Endocrine: Negative. Allergic/Immunologic: Negative. OBJECTIVE Objective: Physical Exam Constitutional: Appearance: Normal appearance. She is well-developed. Cardiovascular: Rate and Rhythm: Normal rate and regular rhythm. Pulmonary: Effort: Pulmonary effort is normal. Breath sounds: Normal breath sounds. Abdominal: General: Bowel sounds are normal. There is no distension. Palpations: Abdomen is soft. Tenderness: There is no abdominal tenderness. There is no guarding or rebound. Musculoskeletal: General: No swelling. Normal range of motion. Right lower leg: No edema. Left lower leg: No edema. Neurological: Mental Status: She is alert and oriented to person, place, and time. Skin: General: Skin is warm and dry. Psychiatric: Mood and Affect: Mood normal. Behavior: Behavior normal. Vitals and nursing note reviewed. Exam conducted with a chick grader present. Vitals: Estimated body mass index is 45.66 kg/m as calculated from the following: Height as of this encounter: 5'. Weight as of this encounter: 233 lb 12.8 oz. BP: 110/68 Patient's last menstrual period was 11/10/2024. ASSESSMENT & PLAN ICD-10-CM 1. Female infertility N97.9 Patient presents to office today to discuss fertility. Patient voiced that she had a miscarriage inNov. Patient voiced she waited until May to attempt to conceive. Patient voiced that she did not have a cycle at all in October. Patient to start Femara and if in 4 months has not conceived will then order labs, HSG and possible semen analysis. Patients LMP: 12/10/24--Start Femara on 12/12/24 Day 21 will be on 12/30/24, timed intercourse starts on 12/21/24 Patient to ensure she schedules for annual appointment prior to leaving. When patient conceives again she will be prescribed Progesterone Vaginal Suppositories. Documented by Shanta Lau LPN on behalf of: Linda Dowling DO documented in this encounterNOMS Healthcare History of Present illness Narrative 02-16-2024 Note Date & SphcGzaxYceyyhkq93-65-9968 History of Present illness Narrative* Ana Cunningham LPN - 02/16/2024 2:40 PM EST Reason for Appointment: Patient ID: Uziel Melgoza is a 28 y.o. female who presents for Threatened Miscarriage Patient presents today for Follow up appointment to discuss results. MEDICATIONS No current outpatient medications ALLERGIES No Known Allergies PROBLEMS Active Ambulatory Problems Diagnosis Date Noted No Active Ambulatory Problems Resolved Ambulatory Problems Diagnosis Date Noted No Resolved Ambulatory Problems Past Medical History: Diagnosis Date Endometriosis Hematuria LGSIL of cervix of undetermined significance Ovarian cyst Pain of ovary HISTORY PAST MEDICAL HISTORY SOCIAL HISTORY Past Medical History: Diagnosis Date Endometriosis Hematuria LGSIL of cervix of undetermined significance Ovarian cyst Pain of ovary Social History Tobacco Use Smoking status: Not on file Smokeless tobacco: Not on file Substance Use Topics Alcohol use: Not on file Drug use: Not on file FAMILY HISTORY Family History Problem Relation Name Age of Onset Diabetes Maternal Grandmother Diabetes Maternal Grandfather Hypertension Paternal Grandfather SURGICAL HISTORY Past Surgical History: Procedure Laterality Date LAPAROSCOPY DIAGNOSTIC / BIOPSY / ASPIRATION / LYSIS PAP SMEAR 11/08/2018 LGSIL REVIEW OF SYSTEMS Review of Systems: Review of Systems Constitutional: Negative. HENT: Negative. Eyes: Negative. Respiratory: Negative. Cardiovascular: Negative. Gastrointestinal: Negative. Genitourinary: Negative. Musculoskeletal: Negative. Skin: Negative. Neurological: Negative. All other systems reviewed and are negative. Hematological: Negative. Endocrine: Negative. Allergic/Immunologic: Negative. OBJECTIVE Objective: Physical Exam Constitutional: Appearance: Normal appearance. She is well-developed. Cardiovascular: Rate and Rhythm: Normal rate and regular rhythm. Pulmonary: Effort: Pulmonary effort is normal. Breath sounds: Normal breath sounds. Abdominal: General: Bowel sounds are normal. There is no distension. Palpations: Abdomen is soft. Tenderness: There is no abdominal tenderness. There is no guarding or rebound. Musculoskeletal: General: No swelling. Normal range of motion. Right lower leg: No edema. Left lower leg: No edema. Neurological: Mental Status: She is alert and oriented to person, place, and time. Skin: General: Skin is warm and dry. Psychiatric: Mood and Affect: Mood normal. Behavior: Behavior normal. Vitals and nursing note reviewed. Exam conducted with a chick grader present. Vitals: Estimated body mass index is 43.94 kg/m as calculated from the following: Height as of this encounter: 5'. Weight as of this encounter: 225 lb. BP: 136/84 No LMP recorded. ASSESSMENT & PLAN ICD-10-CM 1. Threatened miscarriage O20.0 Pt presents with a threatened miscarriage. Quant was 17- given order to have obtained tomorrow, if doubles will repeat in another two days. Pt had bleeding after intercourse and still bleeding. Pt toreturn as needed. Documented by Ana Cunningham LPN on behalf of: Linda Dowling DO [facility] Evaluation note Note Date & TypeNoteFacilityEvaluation note* Diagnosis Threatened miscarriage Threatened , unspecified as to episode of care documented in this encounter [facility] Evaluation note Note Date & TypeNoteFacilityEvaluation note* Diagnosis Laceration of right thumb, foreign body presence unspecified, nail damage status unspecified, initial encounter- Primary documented in this encounter [facility] Evaluation note Note Date & TypeNoteFacilityEvaluation note* Diagnosis Female infertility Female infertility of unspecified origin Endometriosis Endometriosis, site unspecified documented in this encounter [facility] Hospital Discharge instructions Note Date & TypeNoteFacilityHospital Discharge instructions* Attachments The following attachments cannot be sent through Care Everywhere. * Lacerations: Adhesives ([place]) [facility] Summary Purpose Family History No Family History Records FoundNo Family History Records FoundNo Family History Records Found Advance Directives No Advanced Directives Records FoundNo Advanced Directives Records FoundNo Advanced Directives Records Found Additional Source Comments INFORMATION SOURCE (unrecogn ized section and content) DATE CREATED AUTHOR 05/28/[address] [facility] DATE CREATED AUTHOR AUTHOR'S ORGANIZ ATION 07/24/2024 [facility] DATE CREATED AUTHOR AUTHOR'S ORGANIZ ATION 12/13/2024 [facility] EPIC Care Teams (unrecognized sec tion and content) Team MemberRelationshipSpecialtyStart DateEnd Date Nette Robb MD [address] [place] [address] PCP - GeneralFamily Hhaaksic85/18/23Team MemberRelationshipSpecialtyStart Date End Date Nette Robb MD [address] [facility] [place] [address] PCP - GeneralFamily Pvgzmtpd90/18/23Team MemberRelationshipSpecialtyStart Date End Date Nette Robb MD [address] [facility] [place] [address] PCP - GeneralFamily Xrxuzlwv90/18/23Team MemberRelationshipSpecialtyStart Date End Date Nette Robb MD [address] [place] [facility] [address] PCP - Generalmily Medicine07/24/24Team MemberRelationshipSpecialtyStart DateEnd Date Nette Robb MD [address] [facility]], [place] [address] PCP - Generalmily Xyhgswgd38/18/23Team MemberRelationshipSpecialtyStart Date End Date Nette Robb MD [address] [facility]], [place] [address] PCP - Generalmily Ltykabuy57/18/23Team MemberRelationshipSpecialtyStart Date End Date Nette Robb MD [address] [facility]], [place] [address] PCP - GeneralFamily Otymlifx51/18/23 Reason for Visit (unrecogniz ed section and content) ReasonCommentsThreatened MiscarriageReasonCommentsLacerationWas making her son's lunch when the knife slipped and caught her left thumb. Bleeding controlled. Te tanus not up to date.ReasonCommentsInfertility FOR RECORDS PERTAINING TO PATIENTS WHO ARE [...] BE BASED ON THE PRIMARY CLINICAL RECORDS. [facility] Community HospitalStreet [employer] [facility]. provides no warranty or guarantee of the accuracy or completeness of information in this document.
== END 2025-02-27 11:54 | disposition home or self-care (01) ==
LOC: LAB 11:54
PROVIDERS: PCP Family Medicine; Visit Provider Obstetrics & Gynecology
DX: N80.9 Endometriosis, unspecified (principal)
CPT/HCPCS: 36415; 84144